=== PATIENT | female | born 1930 | race Caucasian/White ===

== ENCOUNTER 2017-10-26 10:29 | Inpatient (IN) | payer MEDICARE, OTHER ==
[2017-10-26] MEDS ORDERED: predniSONE 20 MG TAB PO STA (11:01)
[2017-10-26] MEDS ORDERED: IPRATROPIUM-ALBUTEROL 3 ML NEB INHALATION STA (11:01)
--- NOTE | 2017-10-26 11:04 | ED ---
General Adult HPI - General Chief complaint: Shortness of Breath Stated complaint: Weakness Time Seen by Provider: 10/26/17 10:42 Source: patient, family, RN notes reviewed Mode of arrival: wheelchair Limitations: physical limitation - History of Present Illness Initial comments: 86-year-old female presenting with 2 weeks of cough and shortness of breath. Patient has past medical history of congestive heart failure, she has a remote history of tobacco use. She does report orthopnea which is unchanged from baseline. Denies fever. Cough is occasionally productive of yellow sputum. Denies nausea vomiting, states she had one or 2 episodes of diarrhea. Complains of small amount of lower extremity swelling which is at baseline, no worse than usual. Denies chest pain. Denies any pain complaints. Does have a mild sore throat which she attributes to coughing. History of irregular heartbeat on anticoagulation. - Related Data Home Medications Medication Instructions Recorded Confirmed Rivaroxaban [Xarelto] 15 mg PO DAILY 02/26/14 10/26/17 Omeprazole 20 mg PO DAILY 10/26/17 10/26/17 Previous Rx's Medication Instructions Recorded Atenolol [Tenormin] 25 mg PO DAILY #30 tab 03/03/14 Furosemide [Lasix] 40 mg PO BID #60 tab 03/03/14 Lisinopril [Zestril] 2.5 mg PO DAILY #30 tab 03/03/14 Allergies Allergy/AdvReac Type Severity Reaction Status Date / Time No Known Allergies Allergy Verified 10/26/17 11:25 Review of Systems ROS Statement: Those systems with pertinent positive or pertinent negative responses have been documented in the HPI. ROS Other: All systems not noted in ROS Statement are negative. Past Medical History Past Medical History: Cancer, COPD, GERD/Reflux, Hyperlipidemia, Hypertension, Osteoarthritis (OA), Pneumonia Additional Past Medical History / Comment(s): trigeminal neuralgia History of Any Multi-Drug Resistant Organisms: None Reported Past Surgical History: Hysterectomy Additional Past Surgical History / Comment(s): Right mastectomy, bilateral cataracts Past Psychological History: No Psychological Hx Reported Smoking Status: Former smoker Past Alcohol Use History: None Reported Past Drug Use History: None Reported General Exam Limitations: physical limitation General appearance: alert, in no apparent distress Head exam: Present: atraumatic, normocephalic Eye exam: Present: normal appearance, PERRL Neck exam: Present: normal inspection. Absent: tenderness, meningismus Respiratory exam: Present: respiratory distress (mild), wheezes, prolonged expiratory. Absent: rales Cardiovascular Exam: Present: tachycardia, irregular rhythm GI/Abdominal exam: Present: soft. Absent: distended, tenderness Extremities exam: Present: normal inspection, normal capillary refill, pedal edema (trace) Back exam: Present: normal inspection, full ROM. Absent: tenderness Neurological exam: Present: alert, oriented X3, CN II-XII intact. Absent: motor sensory deficit Psychiatric exam: Present: normal affect, normal mood Skin exam: Present: warm, dry, intact. Absent: cyanosis, diaphoretic Course Vital Signs 10/26/17 10/26/17 10/26/17 10:36 11:26 11:32 Temperature 99.5 F Pulse Rate 103 H 87 Respiratory 18 22 Rate Blood Pressure 134/69 O2 Sat by Pulse 96 Oximetry 10/26/17 10/26/17 10/26/17 11:37 11:39 12:44 Temperature 97.9 F Pulse Rate 100 100 90 Respiratory 20 20 Rate Blood Pressure 155/85 127/75 O2 Sat by Pulse 99 96 Oximetry 10/26/17 13:31 Temperature 98.3 F Pulse Rate 86 Respiratory 18 Rate Blood Pressure 124/63 O2 Sat by Pulse 96 Oximetry EKG Findings - EKG Comments: EKG Findings:: EKG shows a flutter with variable AV block, rate of 101, QS duration 84, QTC 523, no ST segment elevation Medical Decision Making - Medical Decision Making 86-year-old female presenting with cough and dyspnea. Patient has past medical history of CHF, no known history of COPD although patient does have remote history of tobacco use. On examination patient has wheezing and prolonged expiration in all lung braga, no Rales. Laboratory studies the white blood count 8.4, hemoglobin 12.0, sodium 137, potassium 3.9 and a creatinine of 1.0 this is all normal. Troponin elevated 0.16 [place] [address]. Wheezing may be bronchospastic or secondary to edema. Chest x-ray shows cardiomegaly with no significant pulmonary edema or pneumonia. Patient is given steroids, albuterol , and Lasix with mild improvement in symptoms. She will be admitted for further evaluation treatment of heart failure, and reactive airway disease Diagnosis: Congestive heart failure, troponin elevation, reactive airway - Lab Data Result diagrams: 10/26/17 10:50 10/26/17 10:50 Lab Results 10/26/17 10/26/17 10/26/17 Range/Units 10:50 10:50 10:50 WBC 8.4 (3.8-10.6) k/uL RBC 4.07 (3.80-5.40) m/uL Hgb 12.4 (11.4-16.0) gm/dL Hct 37.5 (34.0-46.0) % MCV 92.2 (80.0-100.0) fL MCH 30.4 (25.0-35.0) pg MCHC 33.0 (31.0-37.0) g/dL RDW 14.1 (11.5-15.5) % Plt Count 130 L (150-450) k/uL Neutrophils % 86 % Lymphocytes % 7 % Monocytes % 5 % Eosinophils % 0 % Basophils % 0 % Neutrophils # 7.3 (1.3-7.7) k/uL Lymphocytes # 0.6 L (1.0-4.8) k/uL Monocytes # 0.4 (0-1.0) k/uL Eosinophils # 0.0 (0-0.7) k/uL Basophils # 0.0 (0-0.2) k/uL PT (9.0-12.0) sec INR (<1.2) APTT (22.0-30.0) sec Sodium 137 (137-145) mmol/L Potassium 3.9 (3.5-5.1) mmol/L Chloride 99 (98-107) mmol/L Carbon Dioxide 26 (22-30) mmol/L Anion Gap 12 mmol/L BUN 21 H (7-17) mg/dL Creatinine 1.00 (0.52-1.04) mg/dL Est GFR (MDRD) Af Amer >60 (>60 ml/min/1.73 sqM) Est GFR (MDRD) Non-Af 52 (>60 ml/min/1.73 sqM) Glucose 131 H (74-99) mg/dL Plasma Lactic Acid Vik (0.7-2.0) mmol/L Calcium 8.9 (8.4-10.2) mg/dL Magnesium 2.0 (1.6-2.3) mg/dL Total Bilirubin 1.0 (0.2-1.3) mg/dL AST 93 H (14-36) U/L ALT 74 H (9-52) U/L Alkaline Phosphatase 71 (38-126) U/L Total Creatine Kinase 256 H (30-135) U/L CK-MB (CK-2) 4.2 H* (0.0-2.4) ng/mL CK-MB (CK-2) Rel Index 1.6 Troponin I 0.161 H* (0.000-0.034) ng/mL NT-Pro-B Natriuret Pep pg/mL Total Protein 6.0 L (6.3-8.2) g/dL Albumin 3.8 (3.5-5.0) g/dL Influenza Type A RNA (Not Detectd) Influenza Type B (PCR) (Not Detectd) 10/26/17 10/26/17 10/26/17 Range/Units 10:50 10:50 10:50 WBC (3.8-10.6) k/uL RBC (3.80-5.40) m/uL Hgb (11.4-16.0) gm/dL Hct (34.0-46.0) % MCV (80.0-100.0) fL MCH (25.0-35.0) pg MCHC (31.0-37.0) g/dL RDW (11.5-15.5) % Plt Count (150-450) k/uL Neutrophils % % Lymphocytes % % Monocytes % % Eosinophils % % Basophils % % Neutrophils # (1.3-7.7) k/uL Lymphocytes # (1.0-4.8) k/uL Monocytes # (0-1.0) k/uL Eosinophils # (0-0.7) k/uL Basophils # (0-0.2) k/uL PT 12.5 H (9.0-12.0) sec INR 1.3 H (<1.2) APTT 35.0 H (22.0-30.0) sec Sodium (137-145) mmol/L Potassium (3.5-5.1) mmol/L Chloride (98-107) mmol/L Carbon Dioxide (22-30) mmol/L Anion Gap mmol/L BUN (7-17) mg/dL Creatinine (0.52-1.04) mg/dL Est GFR (MDRD) Af Amer (>60 ml/min/1.73 sqM) Est GFR (MDRD) Non-Af (>60 ml/min/1.73 sqM) Glucose (74-99) mg/dL Plasma Lactic Acid Vik (0.7-2.0) mmol/L Calcium (8.4-10.2) mg/dL Magnesium (1.6-2.3) mg/dL Total Bilirubin (0.2-1.3) mg/dL AST (14-36) U/L ALT (9-52) U/L Alkaline Phosphatase (38-126) U/L Total Creatine Kinase (30-135) U/L CK-MB (CK-2) (0.0-2.4) ng/mL CK-MB (CK-2) Rel Index Troponin I (0.000-0.034) ng/mL NT-Pro-B Natriuret Pep 15044 pg/mL Total Protein (6.3-8.2) g/dL Albumin (3.5-5.0) g/dL Influenza Type A RNA Not Detected (Not Detectd) Influenza Type B (PCR) Not Detected (Not Detectd) 10/26/17 Range/Units 10:50 WBC (3.8-10.6) k/uL RBC (3.80-5.40) m/uL Hgb (11.4-16.0) gm/dL Hct (34.0-46.0) % MCV (80.0-100.0) fL MCH (25.0-35.0) pg MCHC (31.0-37.0) g/dL RDW (11.5-15.5) % Plt Count (150-450) k/uL Neutrophils % % Lymphocytes % % Monocytes % % Eosinophils % % Basophils % % Neutrophils # (1.3-7.7) k/uL Lymphocytes # (1.0-4.8) k/uL Monocytes # (0-1.0) k/uL Eosinophils # (0-0.7) k/uL Basophils # (0-0.2) k/uL PT (9.0-12.0) sec INR (<1.2) APTT (22.0-30.0) sec Sodium (137-145) mmol/L Potassium (3.5-5.1) mmol/L Chloride (98-107) mmol/L Carbon Dioxide (22-30) mmol/L Anion Gap mmol/L BUN (7-17) mg/dL Creatinine (0.52-1.04) mg/dL Est GFR (MDRD) Af Amer (>60 ml/min/1.73 sqM) Est GFR (MDRD) Non-Af (>60 ml/min/1.73 sqM) Glucose (74-99) mg/dL Plasma Lactic Acid Vik 1.7 (0.7-2.0) mmol/L Calcium (8.4-10.2) mg/dL Magnesium (1.6-2.3) mg/dL Total Bilirubin (0.2-1.3) mg/dL AST (14-36) U/L ALT (9-52) U/L Alkaline Phosphatase (38-126) U/L Total Creatine Kinase (30-135) U/L CK-MB (CK-2) (0.0-2.4) ng/mL CK-MB (CK-2) Rel Index Troponin I (0.000-0.034) ng/mL NT-Pro-B Natriuret Pep pg/mL Total Protein (6.3-8.2) g/dL Albumin (3.5-5.0) g/dL Influenza Type A RNA (Not Detectd) Influenza Type B (PCR) (Not Detectd) Disposition Clinical Impression: Congestive heart failure, Troponin level elevated Disposition: ADMITTED IP TO THIS HOSP Condition: Stable Referrals: Roe Simons III, MD [Primary Care Provider] - 1-2 days Decision to Admit Reason: Admit from EC Decision Date: 10/26/17 Decision Time: 13:03
[2017-10-26 11:17] LABS: Basophils % (A) 0 %; Eosinophils % (A) 0 %; HCT 37.5 % (34.0-46.0); HGB 12.4 gm/dL (11.4-16.0); Lymphocytes # (A) 0.6 k/uL (1.0-4.8); Lymphocytes % (A) 7 %; MCH 30.4 pg (25.0-35.0); MCV 92.2 fL (80.0-100.0); Mean Platelet Volume 7.5; Monocytes # (A) 0.4 k/uL (0-1.0); Monocytes % (A) 5 %; Neutrophils # (A) 7.3 k/uL (1.3-7.7); Neutrophils % (A) 86 %; Platelet Count 130 k/uL (150-450); RBC 4.07 m/uL (3.80-5.40); RDW 14.1 % (11.5-15.5); WBC 8.4 k/uL (3.8-10.6)
[2017-10-26 11:26] LABS: INR 1.3 (<1.2); Prothrombin Time 12.5 sec (9.0-12.0)
[2017-10-26 11:43] LABS: ALT 74 U/L (9-52); AST 93 U/L (14-36); Albumin 3.8 g/dL (3.5-5.0); Alkaline Phosphatase 71 U/L (38-126); Anion Gap 12 mmol/L; Blood Urea Nitrogen 21 mg/dL (7-17); Calcium 8.9 mg/dL (8.4-10.2); Carbon Dioxide 26 mmol/L (22-30); Chloride 99 mmol/L (98-107); Glucose 131 mg/dL (74-99); Potassium 3.9 mmol/L (3.5-5.1); Sodium 137 mmol/L (137-145)
[2017-10-26 12:02] LABS: Creatine Kinase MB 4.2 ng/mL (0.0-2.4); Troponin I 0.161 ng/mL (0.000-0.034)
--- NOTE | 2017-10-26 12:22 | XR ---
EXAMINATION TYPE: XR chest 2V DATE OF EXAM: 10/26/2017 COMPARISON: 03/02/2014 INDICATION: Difficulty breathing TECHNIQUE: Frontal and lateral views of the chest are obtained. FINDINGS: Cardiomediastinal silhouette is again enlarged, stable in comparison to exam of 03/02/2014. There is an exaggerated thoracic kyphosis and generalized demineralization of the osseous structures . No pleural effusion is seen or pneumothorax. No focal consolidation. Left costophrenic angle is obs cured by cardiomegaly and soft tissues. Single surgical clip is noted along the right peripheral uppe r lung. IMPRESSION: Stable cardiomegaly mediastinal silhouette enlargement dating back to 03/02/2014. No acut e cardiopulmonary process.
[2017-10-26] MEDS ORDERED: FUROSEMIDE 10 MG/ML 2 ML VIAL IV STA (12:56)
[2017-10-26] MEDS ORDERED: ASPIRIN 325 MG TAB PO STA (13:04)
[2017-10-26] MEDS ORDERED: NALOXONE 0.4 MG/ML 1 ML VIAL IV PRN (14:02)
[2017-10-26] MEDS ORDERED: ACETAMINOPHEN TAB 325 MG TAB PO PRN (14:02)
[2017-10-26 18:01] LABS: Creatine Kinase MB 5.5 ng/mL (0.0-2.4); Troponin I 0.114 ng/mL (0.000-0.034)
[2017-10-26] MEDS: methylPREDNISolone SOD SUCCI 125 MG/2 ML VIAL IV SCH ×2 (18:36→23:17)
[2017-10-26 18:58] LABS: Appearance,Urine Clear (Clear); Bilirubin,Urine Negative (Negative); Blood,Urine Trace (Negative); Color,Urine Light Yellow; Glucose,Urine (UA) Negative (Negative); Ketones,Urine Trace (Negative); Leukocyte Esterase,Urine Negative (Negative); Mucus,Urine Rare /hpf; Nitrite,Urine Negative (Negative); Protein,Urine Negative (Negative); RBC,Urine 1 /hpf (0-5); Specific Gravity,Urine 1.005 (1.001-1.035); Squamous Epithelial Cell,Urine <1 /hpf (0-4); Urobilinogen,Urine <2.0 mg/dL (<2.0); WBC,Urine 1 /hpf (0-5)
[2017-10-26] MEDS: AZITHROMYCIN 500 MG in SODIUM CHLORIDE 0.9% 250 ML IVPB SCH (19:07)
[2017-10-26] MEDS: cefTRIAXone IN SWFI 1,000 MG/10 ML SYRINGE IVP SCH (19:07)
[2017-10-26 20:59] LABS: Glucose,Whole Blood 163 mg/dL (75-99)
[2017-10-26] MEDS ORDERED: FUROSEMIDE 10 MG/ML 2 ML VIAL IV SCH (21:00)
[2017-10-26] MEDS: INSULIN ASPART 100 UNIT/ML 1 ML 10 ML VIAL SQ SCH (21:00)
[2017-10-26] MEDS: FUROSEMIDE 10 MG/ML 4 ML VIAL IV SCH (21:01)
--- NOTE | 2017-10-26 21:09 | HP ---
HISTORY AND PHYSICAL CHIEF COMPLAINTS: Shortness of breath and cough and sputum. HISTORY OF PRESENT ILLNESS: This 86-year-old woman with a past medical history of multiple medical problems, including atrial fibrillation, history of CHF, COPD, GERD, hypertension, hyperlipidemia, history of memory impairment, history of trigeminal neuralgia, being followed by Dr. Simons in the outpatient setting, was having cough and upper respiratory symptoms over the last 2 weeks. The patient had increasing shortness of breath and tiredness and weakness and patient came to [facility] and was admitted for further evaluation and treatment. Patient has orthopnea, too. Patient has some productive yellow sputum. The patient came to the emergency room and a chest x- ray showed some vascular congestion as well as some mediastinal silhouette enlargement. Otherwise there is no history of any fever, rigor or chills; no history of headache, loss of consciousness, seizures. PAST MEDICAL HISTORY: 1. History of atrial fibrillation. 2. History of CHF. 3. COPD. 4. GERD. 5. Hypertension. 6. Hyperlipidemia. 7. History of memory impairment. 8. History of DJD. 9. History of trigeminal neuralgia. HOME MEDICATIONS: 1. Xarelto 15 mg p.o. daily. 2. Omeprazole 20 mg daily. 3. Zestril 2.5 mg daily. 4. Lasix 40 mg b.i.d. 5. Tenormin 25 mg daily. ALLERGIES: NONE. FAMILY HISTORY: No history of heart disease or strokes in the family. SOCIAL HISTORY: Previous history of smoking. No history of alcohol intake. REVIEW OF SYSTEMS: ENT: Diminished hearing. Diminished vision. CARDIOVASCULAR SYSTEM: As mentioned earlier. RESPIRATORY SYSTEM: As mentioned earlier. GI: No nausea, vomiting. : No dysuria or retention. NERVOUS SYSTEM: No numbness, weakness. ALLERGY/IMMUNOLOGY: No asthma, hayfever. MUSCULOSKELETAL: As mentioned earlier. HEMATOLOGY/ONCOLOGY: No history of anemia; otherwise as mentioned earlier. ENDOCRINE: No history of diabetes, hypothyroidism. CONSTITUTIONAL: As mentioned earlier. DERMATOLOGY: Negative. RHEUMATOLOGY: Negative. PSYCHIATRY: As mentioned earlier. PHYSICAL EXAMINATION: Patient is alert and oriented x3. Pulse 91, blood pressure 137/89, respiration 16, temperature is 98.2, pulse ox 94% on room air. HEENT: Conjunctivae normal. Oral mucosa moist. NECK: No jugular venous distention. No carotid bruit. No lymph node enlargement. CARDIOVASCULAR SYSTEM: S1, S2 muffled. No S3. No S4. RESPIRATORY SYSTEM: Breath sounds diminished at the bases. Scattered rhonchi and crackles. Expiratory wheezing and prolongation also present. ABDOMEN: Soft, nontender. No mass palpable. LEGS: No edema. No swelling. NERVOUS SYSTEM: Higher functions as mentioned earlier. Moves all 4 limbs. No focal motor or sensory deficit. LYMPHATICS: No lymph node palpable in neck, axillae or groin. SKIN: No ulcer, rash, bleeding. LABS: WBC 8.4, hemoglobin 12.4, platelets 130. INR 1.3. PTT is 12.5. Glucose 131. AST is 193 and ALT is 94. CK-MB is 4.2, troponin 0.161. Total protein is 6 NT proBNP is 36,500. ASSESSMENT: 1. Shortness of breath, possibly multifactorial, with congestive heart failure, acute exacerbation, ejection fraction unknown. 2. Possible chronic obstructive pulmonary disease, acute exacerbation, with acute purulent tracheobronchitis. 3. History of recent upper respiratory infection. 4. Increased AST, ALT, possibly mild hepatitis. 5. Troponin 1 0.161; rule out acute [id number]-elevation myocardial infarction. 6. Mild thrombocytopenia. 7. History of nicotine dependence. 8. History of atrial fibrillation, chronic, persistent. 9. History of gastroesophageal reflux disease. 10.Hypertension. 11.Hyperlipidemia. 12.History of dementia. 13.History of degenerative joint disease. 14.History of pneumonia. 15.History of trigeminal neuralgia. 16.History of breast cancer. 17.History of peripheral vascular. 18.Migraines. 19.History hysterectomy. 20.History of depression. 21.FULL CODE. RECOMMENDATIONS AND DISCUSSION: In this 86-year-old woman who presented with multiple complex medical issues, we will monitor the patient closely, continue the current medications, continue symptomatic treatment. The patient has multifactorial etiology for her symptoms. At this time I would recommend repeating the flu swab with the proper technique. I would also recommend IV antibiotics empirically and intensive bronchodilator treatment. Lasix and monitoring fluid/electrolyte balance also will be recommended. Repeat labs will be ordered. IV steroids. Monitor blood sugars closely. Resume the home medications. Prognosis is guarded because of multiple complex medical issues. Further recommendations to follow. Discussed with the patient. A copy of this dictation is being forwarded to Dr. Simons, who is the primary physician. Discussed with the patient, who understands and agrees. MMODL / IJN: [id number] / REHAN
[2017-10-26] MEDS: ALPRAZolam 0.25 MG TAB PO PRN (23:17)
[2017-10-26 23:44] LABS: Creatine Kinase MB 6.3 ng/mL (0.0-2.4)
[2017-10-26 23:45] LABS: Troponin I 0.084 ng/mL (0.000-0.034)
[2017-10-27] MEDS: SYMBICORT 160-4.5 MCG INHALER INHALATION SCH ×3 (00:14→20:18)
[2017-10-27 05:57] LABS: Glucose,Whole Blood 150 mg/dL (75-99)
[2017-10-27 06:11] LABS: Basophils % (A) 0 %; Eosinophils % (A) 0 %; HGB 13.1 gm/dL (11.4-16.0); Hypochromasia Slight; Lymphocytes # (A) 0.4 k/uL (1.0-4.8); Lymphocytes % (A) 8 %; MCH 30.4 pg (25.0-35.0); MCHC 31.9 g/dL (31.0-37.0); MCV 95.3 fL (80.0-100.0); Mean Platelet Volume 8.1; Monocytes # (A) 0.1 k/uL (0-1.0); Monocytes % (A) 2 %; Neutrophils # (A) 4.4 k/uL (1.3-7.7); Neutrophils % (A) 88 %; Platelet Count 117 k/uL (150-450); RDW 15.1 % (11.5-15.5)
[2017-10-27 06:29] LABS: Anion Gap 11 mmol/L; Blood Urea Nitrogen 24 mg/dL (7-17); Calcium 8.4 mg/dL (8.4-10.2); Carbon Dioxide 25 mmol/L (22-30); Chloride 103 mmol/L (98-107); Glucose 165 mg/dL (74-99); Potassium 3.5 mmol/L (3.5-5.1); Sodium 139 mmol/L (137-145)
[2017-10-27] MEDS: INSULIN ASPART 100 UNIT/ML 1 ML 10 ML VIAL SQ SCH ×4 (06:32→21:45)
[2017-10-27] MEDS: methylPREDNISolone SOD SUCCI 125 MG/2 ML VIAL IV SCH ×4 (06:32→23:05)
[2017-10-27] MEDS: PANTOPRAZOLE 40 MG TABLET PO SCH (06:33)
[2017-10-27] MEDS: ALBUTEROL NEBULIZED 2.5 MG/3 ML INHALATION PRN ×4 (07:56→20:18)
[2017-10-27] MEDS ORDERED: predniSONE 20 MG TAB PO SCH (09:00)
[2017-10-27] MEDS: AZITHROMYCIN 500 MG in SODIUM CHLORIDE 0.9% 250 ML IVPB SCH (09:18)
[2017-10-27] MEDS: cefTRIAXone IN SWFI 1,000 MG/10 ML SYRINGE IVP SCH (09:20)
[2017-10-27] MEDS: RIVAROXABAN 15 MG TAB PO SCH (09:22)
[2017-10-27] MEDS: LISINOPRIL 2.5 MG TAB PO SCH (09:22)
[2017-10-27] MEDS: FUROSEMIDE 10 MG/ML 4 ML VIAL IV SCH ×2 (09:22→20:27)
[2017-10-27] MEDS: ATENOLOL 25 MG TAB PO SCH (09:22)
--- NOTE | 2017-10-27 11:38 | P.CRDCN ---
History of Present Illness Consult date: 10/27/17 Requesting physician: Dharmesh Hickey Consult reason: shortness of breath Chief complaint: Shortness of of breath and fatigue History of present illness: This is an 86-year-old female with history of persistent atrial fibrillation, COPD, hypertension, lipidemia, memory impairment, who presents to the hospital with symptoms of progressively worsening shortness of breath with associated productive cough of yellow sputum. She denies any fever. Asked x- ray on admission revealed stable cardiomegaly, mediastinal silhouette enlargement dating back to 2013 with no acute process. EKG on admission showed atrial fibrillation with a controlled ventricular response. Blood pressure on admission 134/68 with a heart rate in the 90s, temperature 99.5 blood pressure this morning 125/60, heart rate in the 60s, 94% on 2 L of oxygen. Laboratory data was reviewed, white blood cell count 5.0, platelet count 117, hemoglobin 13. Sodium 139, potassium 3.5, BUN 24, creatinine 0.8. AST 93, ALT 74. Troponin 0.16, 0.11, 0.08. BNP level 36,500. Patient was initiated on IV Lasix as well as antibiotics and steroids on admission. Her weight is down 1 kg today. She continues to have productive cough, quite wheezy. Past Medical History Past Medical History: Atrial Fibrillation, Cancer, Heart Failure, COPD, GERD/ Reflux, Hyperlipidemia, Hypertension, Memory Impairment, Osteoarthritis (OA), Pneumonia Additional Past Medical History / Comment(s): trigeminal neuralgia, bronchitis, hx of rt breast cancer(sx only), pvd,migraines, upper/lower bridges, osteoporosis, djd History of Any Multi-Drug Resistant Organisms: None Reported Past Surgical History: Hysterectomy Additional Past Surgical History / Comment(s): Right mastectomy, bilateral cataracts, lt carpal tunnel, ganglion cyst removed Past Anesthesia/Blood Transfusion Reactions: No Reported Reaction Smoking Status: Former smoker - Past Family History Father History Unknown: Yes Mother History Unknown: Yes Medications and Allergies Home Medications Medication Instructions Recorded Confirmed Type Rivaroxaban [Xarelto] 15 mg PO DAILY 02/26/14 10/26/17 History Atenolol [Tenormin] 25 mg PO DAILY #30 tab 03/03/14 10/26/17 Rx Furosemide [Lasix] 40 mg PO BID #60 tab 03/03/14 10/26/17 Rx Lisinopril [Zestril] 2.5 mg PO DAILY #30 tab 03/03/14 10/26/17 Rx Omeprazole 20 mg PO DAILY 10/26/17 10/26/17 History Allergies Allergy/AdvReac Type Severity Reaction Status Date / Time No Known Allergies Allergy Verified 10/26/17 11:25 Physical Exam Vitals: Vital Signs Temp Pulse Pulse Resp BP BP Pulse Ox 10/27/17 11:18 88 10/27/17 08:11 84 10/27/17 08:00 98.1 F 63 18 125/66 94 L 10/27/17 07:56 76 10/27/17 03:38 97.1 F L 85 18 121/70 93 L 10/27/17 00:00 96.9 F L 115 H 18 138/87 96 10/26/17 20:00 97.5 F L 94 18 115/62 96 10/26/17 15:54 18 10/26/17 15:40 91 16 137/89 95 10/26/17 14:32 98.2 F 71 18 161/70 96 10/26/17 13:31 98.3 F 86 18 124/63 96 10/26/17 12:44 90 20 127/75 96 10/26/17 11:39 97.9 F 100 20 155/85 99 10/26/17 11:37 100 10/26/17 11:32 22 Intake and Output 10/26/17 10/27/17 10/27/17 22:59 06:59 14:59 Intake Total 240 120 Output Total 200 Balance 40 120 Intake: Oral 240 120 Output: Urine 200 Other: # Voids 1 2 # Bowel Movements 0 Weight 54.1 kg 53.4 kg PHYSICAL EXAMINATION: HEENT: Head is atraumatic, normocephalic. Pupils equal, round. Neck is supple. There is elevated jugular venous pressure. HEART EXAMINATION: Heart S1 and S2 irregularly irregular CHEST EXAMINATION: Reveal scattered coarse rhonchi and wheezing throughout ABDOMEN: Soft, nontender. Bowel sounds are heard. No organomegaly noted. EXTREMITIES: 1+ peripheral pulses with no evidence of peripheral edema and no calf tenderness noted. NEUROLOGIC patient is awake, alert and oriented -3. . Results 10/27/17 05:52 10/27/17 05:52 Cardiac Enzymes 10/26/17 10/26/17 10/26/17 Range/Units 10:50 10:50 17:09 AST 93 H (14-36) U/L CK-MB (CK-2) 4.2 H* 5.5 H* (0.0-2.4) ng/mL Troponin I 0.161 H* 0.114 H* (0.000-0.034) ng/mL 10/26/17 Range/Units 22:23 AST (14-36) U/L CK-MB (CK-2) 6.3 H* (0.0-2.4) ng/mL Troponin I 0.084 H* (0.000-0.034) ng/mL Coagulation 10/26/17 Range/Units 10:50 PT 12.5 H (9.0-12.0) sec APTT 35.0 H (22.0-30.0) sec CBC 10/27/17 Range/Units 05:52 WBC 5.0 (3.8-10.6) k/uL RBC 4.30 (3.80-5.40) m/uL Hgb 13.1 (11.4-16.0) gm/dL Hct 41.0 (34.0-46.0) % Plt Count 117 L (150-450) k/uL Comprehensive Metabolic Panel 10/26/17 10/27/17 Range/Units 10:50 05:52 Sodium 137 139 (137-145) mmol/L Potassium 3.9 3.5 (3.5-5.1) mmol/L Chloride 99 103 (98-107) mmol/L Carbon Dioxide 26 25 (22-30) mmol/L BUN 21 H 24 H (7-17) mg/dL Creatinine 1.00 0.83 (0.52-1.04) mg/dL Glucose 131 H 165 H (74-99) mg/dL Calcium 8.9 8.4 (8.4-10.2) mg/dL AST 93 H (14-36) U/L ALT 74 H (9-52) U/L Alkaline Phosphatase 71 (38-126) U/L Total Protein 6.0 L (6.3-8.2) g/dL Albumin 3.8 (3.5-5.0) g/dL Current Medications Generic Name Dose Route Start Last Admin Trade Name Freq PRN Reason Stop Dose Admin Acetaminophen 650 mg 10/26/17 14:02 Tylenol Tab PO Q6HR PRN Mild Pain or Fever > 100.5 Albuterol Sulfate 2.5 mg 10/26/17 13:04 10/27/17 11:17 Ventolin Nebulized INHALATION 2.5 mg RT-QID PRN Administration Shortness Of Breath Or Wheezing Alprazolam 0.25 mg 10/26/17 17:56 10/26/17 23:17 Xanax PO 0.25 mg TID PRN Administration Anxiety Atenolol 25 mg 10/27/17 09:00 10/27/17 09:22 Tenormin PO 25 mg DAILY ANJANA Administration Budesonide/Formoterol Fumarate 2 puff 10/26/17 20:00 10/27/17 07:56 Symbicort 160-4.5 Mcg Inhaler INHALATION 2 puff RT-BID ANJANA Administration Ceftriaxone Sodium 1,000 mg 10/26/17 18:30 10/27/17 09:20 Rocephin IVP 1,000 mg Q24HR ANJANA Administration Furosemide 40 mg 10/26/17 21:00 10/27/17 09:22 Lasix IV 40 mg Q12HR ANJANA Administration Azithromycin 500 mg/ Sodium 250 mls @ 125 mls/hr 10/26/17 18:30 10/27/17 09: 18 Chloride IVPB 125 mls/hr DAILY ANJANA Administration Insulin Aspart 0 unit 10/26/17 21:00 10/27/17 06:32 Novolog SQ 1 unit ACHS ANJANA Administration Protocol Lisinopril 2.5 mg 10/27/17 09:00 10/27/17 09:22 Zestril PO 2.5 mg DAILY ANJANA Administration Methylprednisolone Sodium Succinate 60 mg 10/26/17 18:00 10/27/17 06:32 Solu-Medrol IV 60 mg Q6HR ANJANA Administration Naloxone HCl 0.2 mg 10/26/17 14:02 Narcan IV Q2M PRN Opioid Reversal Pantoprazole Sodium 40 mg 10/27/17 07:30 10/27/17 06:33 Protonix PO 40 mg [id number] ANJANA Administration Rivaroxaban 15 mg 10/27/17 09:00 10/27/17 09:22 Xarelto PO 15 mg DAILY ANJANA Administration Intake and Output 10/26/17 10/27/17 10/27/17 22:59 06:59 14:59 Intake Total 240 120 Output Total 200 Balance 40 120 Intake: Oral 240 120 Output: Urine 200 Other: # Voids 1 2 # Bowel Movements 0 Weight 54.1 kg 53.4 kg 10/27/17 05:52 10/27/17 05:52 EKG Interpretations (text) EKG shows atrial fibrillation with a controlled ventricular response Assessment and Plan Plan: Assessment and plan #1 congestive cardiac failure, LV function unknown. Echocardiogram with Doppler study pending. #2 COPD exacerbation with acute purulent tracheobronchitis #3 abnormal troponin, likely secondary to oxygen supply and demand mismatch. Patient denies any chest discomfort. EKG shows atrial fibrillation with a controlled ventricular response #4 chronic persistent atrial fibrillation, on Xarelto for anticoagulation #5 nicotine dependence #6 COPD #7 hypertension #8 hyperlipidemia #9 history of dementia #10 abnormal liver enzymes, likely secondary to congestion from congestive cardiac failure Plan We will review the echocardiogram with Doppler study. Continue IV Lasix along with beta benedicto and TAISHA inhibitor. On her intake and output along with daily weights, daily lytes BUN and creatinine.
[2017-10-27 11:50] VITALS: BMI 23.0
[2017-10-27 11:58] LABS: Glucose,Whole Blood 178 mg/dL (75-99)
--- NOTE | 2017-10-27 12:24 | ECHOF ---
Referral Reason:chf MEASUREMENTS -------- HEIGHT: 152.4 cm WEIGHT: 53.1 kg BP: 121/70 RVIDd: 3.2 cm (< 3.3) IVSd: 1.4 cm (0.6 - 1.1) LVIDd: 4.3 cm (3.9 - 5.3) LVPWd: 1.5 cm (0.6 - 1.1) IVSs: 1.8 cm LVIDs: 3.6 cm LVPWs: 2.2 cm LA Diam: 5.5 cm (2.7 - 3.8) LAESV Index (A-L): 98.62 ml/m Ao Diam: 3.6 cm (2.0 - 3.7) AV Cusp: 2.0 cm (1.5 - 2.6) MV EXCURSION: 26.377 mm (> 18.000) MV EF SLOPE: 221 mm/s (70 - 150) EPSS: 0.3 cm RAP: 5.00 mmHg RVSP: 45.00 mmHg FINDINGS -------- Atrial fibrillation. This was a technically good study. The left ventricular size is normal. There is moderate concentric left ventricular hypertrophy. O verall left ventricular systolic function is mild-moderately impaired with, an EF between 40 - 45 %. The right ventricle is normal in size. LA is severely dilated >40 ml/m2 The right atrium is normal in size. The aortic valve is trileaflet and appears structurally normal. The mitral valve leaflets are mildly thickened. Mild mitral annular calcification present. Mild m itral regurgitation is present , predominately a posteriorly directed jet. Mild tricuspid regurgitation present. There is mild pulmonary hypertension. The right ventricular systolic pressure, as measured by Doppler, is 45.00mmHg. Moderate pulmonic regurgitation. The aortic root size is normal. Normal inferior vena cava with normal inspiratory collapse consistent with estimated right atrial pre ssure of 5 mmHg. There is no pericardial effusion. CONCLUSIONS -------- 1. Atrial fibrillation. 2. This was a technically good study. 3. The left ventricular size is normal. 4. There is moderate concentric left ventricular hypertrophy. 5. Overall left ventricular systolic function is mild-moderately impaired with, an EF between 40 - 45 %. 6. The right ventricle is normal in size. 7. LA is severely dilated >40 ml/m2 8. The right atrium is normal in size. 9. The aortic valve is trileaflet and appears structurally normal. 10. The mitral valve leaflets are mildly thickened. 11. Mild mitral annular calcification present. 12. Mild mitral regurgitation is present. 13. , predominately a posteriorly directed jet. 14. Mild tricuspid regurgitation present. 15. There is mild pulmonary hypertension. 16. The right ventricular systolic pressure, as measured by Doppler, is 45.00mmHg. 17. Moderate pulmonic regurgitation. 18. The aortic root size is normal. 19. Normal inferior vena cava with normal inspiratory collapse consistent with estimated right atrial pressure of 5 mmHg. 20. There is no pericardial effusion. TUNNEL MUCKER: Isi James RDCS
--- NOTE | 2017-10-27 15:57 | P.CNPUL ---
History of Present Illness Consult date: 10/27/17 Reason for consult: dyspnea History of present illness: This is a very pleasant 86-year-old here patient who comes into the hospital because of increased chest congestion and cough and wheezing typically of an acute tracheobronchitis. Chest x-ray shows no evidence of any pneumonia. Yet she has severe thoracic kyphosis. She is known also to have history of chronic atrial fibrillation and she may have an underlying component of CHF knowing that the BNP level at the time of admission was quite elevated at 36,000. The patient was started on a combination of bronchodilators and steroids and antibiotics and the patient is also on IV Lasix. Her weight is down by around 1 kg since yesterday. She is feeling slightly better compared to yesterday. No pleurisy. No hemoptysis. No chest pain. No altered mental status. No history of smoking patient does not utilize any form of maintenance inhalers. She has a nebulizer at home should she uses on an as-needed basis. No significant swelling in lower extremities. No fall. No altered mentation. The white cell count is not elevated at 5.0. Rest of the blood work and electrodes have been within normal limits. Troponin I been 0.16, 0.11 and 0.08 respectively 3. The echocardiogram was completed and showed atrial fibrillation, moderate concentric left ventricular hypertrophy, mild-to- moderate LV dysfunction with an ejection fraction of 40-45%, normal RV size and function, severely dilated LA, mild MR, right sided pressures of 45 mmHg and moderate degree of pulmonary regurgitation. There is normal respiratory collapse of the right atrium. No pericardial effusion. Review of Systems Constitutional: Reports fatigue, Reports weakness, Reports weight gain Eyes: denies blurred vision, denies bulging eye, denies decreased vision Ears: deny: decreased hearing, ear discharge, earache Ears, nose, mouth and throat: Denies headache, Denies sore throat Cardiovascular: Reports decreased exercise tolerance, Reports dyspnea on exertion, Reports shortness of breath Respiratory: Reports cough, Reports wheezing Genitourinary: Denies dysuria, Denies hematuria Musculoskeletal: Reports as per HPI (, severe thoracic kyphosis), Denies myalgias Musculoskeletal: bilateral: ankle swelling, absent: ankle pain, ankle stiffness Integumentary: Denies pruritus, Denies rash Neurological: Denies numbness, Denies weakness Psychiatric: Denies anxiety, Denies depression Endocrine: Denies fatigue, Denies weight change Past Medical History Past Medical History: Atrial Fibrillation, Cancer, Heart Failure, COPD, GERD/ Reflux, Hyperlipidemia, Hypertension, Memory Impairment, Osteoarthritis (OA), Pneumonia Additional Past Medical History / Comment(s): Chronic atrial fibrillation, breast cancer with a previous right mastectomy, peripheral vascular disease, migraines, trigeminal neuralgia, osteoporosis, osteoarthritis, hypertension, hyperlipidemia, acid reflux, CHF with mild impairment of the LV function with an ejection fraction of 40-45% and moderate degree of pulmonary hypertension History of Any Multi-Drug Resistant Organisms: None Reported Past Surgical History: Hysterectomy Additional Past Surgical History / Comment(s): Right mastectomy, bilateral cataracts, lt carpal tunnel, ganglion cyst removed Past Anesthesia/Blood Transfusion Reactions: No Reported Reaction Smoking Status: Former smoker - Past Family History Father History Unknown: Yes Mother History Unknown: Yes Medications and Allergies Home Medications Medication Instructions Recorded Confirmed Type Rivaroxaban [Xarelto] 15 mg PO DAILY 02/26/14 10/26/17 History Atenolol [Tenormin] 25 mg PO DAILY #30 tab 03/03/14 10/26/17 Rx Furosemide [Lasix] 40 mg PO BID #60 tab 03/03/14 10/26/17 Rx Lisinopril [Zestril] 2.5 mg PO DAILY #30 tab 03/03/14 10/26/17 Rx Omeprazole 20 mg PO DAILY 10/26/17 10/26/17 History Allergies Allergy/AdvReac Type Severity Reaction Status Date / Time No Known Allergies Allergy Verified 10/26/17 11:25 Physical Exam Vitals: Vital Signs Temp Pulse Pulse Resp BP Pulse Ox 10/27/17 12:00 97.8 F 98 20 136/73 96 10/27/17 11:29 92 10/27/17 11:18 88 10/27/17 08:11 84 10/27/17 08:00 98.1 F 63 18 125/66 94 L 10/27/17 07:56 76 10/27/17 03:38 97.1 F L 85 18 121/70 93 L 10/27/17 00:00 96.9 F L 115 H 18 138/87 96 10/26/17 20:00 97.5 F L 94 18 115/62 96 10/26/17 15:54 18 Intake and Output 10/27/17 10/27/17 10/27/17 06:59 14:59 22:59 Intake Total 495 Balance 495 Intake: Intake, IV Titration 250 Amount Azithromycin 500 mg In 250 Sodium Chloride 0.9% 250 ml @ 125 mls/hr IVPB DAILY [facility] Rx#:[id number] Oral 245 Other: # Voids 2 Weight 53.4 kg 53.4 kg Patient Weight 10/28/17 06:59 Weight 53.4 kg The patient appeared elderly female patient who looks quite cachectic at this point. Vital signs as documented. Head exam is unremarkable. No scleral icterus or corneal arcus noted. Neck is without jugular venous distension, thyromegaly, or carotid bruits. Carotid upstrokes are brisk bilaterally. Lungs are diminished breath sounds along with prolongation of the expiratory phase of breathing and there is evidence of thoracic kyphosis. Cardiac exam reveals the PMI to be normally sized and situated. Rhythm is irregular secondary to atrial fibrillation. First and second heart sounds normal. No murmurs, rubs or gallops. Abdominal exam reveals normal bowel sounds, no masses, no organomegaly and no aortic enlargement. Extremities are nonedematous and both femoral and pedal pulses are normal.Examination of the skin revealed no evidence of significant rashes, suspicious appearing nevi or other concerning lesions. Neurologic the patient is awake and alert and there is no focal neurological deficit at this point . psychiatrically the patient has normal affect and mood. Results - Laboratory Findings CBC and BMP: 10/27/17 05:52 10/27/17 05:52 PT/INR, D-dimer PT 12.5 sec (9.0-12.0) H 10/26/17 10:50 INR 1.3 (<1.2) H 10/26/17 10:50 Abnormal lab findings: Abnormal Labs 10/26/17 10/26/17 10/26/17 10:50 10:50 10:50 Plt Count 130 L Lymphocytes # 0.6 L PT INR APTT BUN 21 H Glucose 131 H POC Glucose (mg/dL) AST 93 H ALT 74 H Total Creatine Kinase 256 H CK-MB (CK-2) 4.2 H* Troponin I 0.161 H* Total Protein 6.0 L Urine Ketones Urine Blood Urine Mucus 10/26/17 10/26/17 10/26/17 10:50 17:09 18:30 Plt Count Lymphocytes # PT 12.5 H INR 1.3 H APTT 35.0 H BUN Glucose POC Glucose (mg/dL) AST ALT Total Creatine Kinase 296 H CK-MB (CK-2) 5.5 H* Troponin I 0.114 H* Total Protein Urine Ketones Trace H Urine Blood Trace H Urine Mucus Rare H 10/26/17 10/26/17 10/27/17 20:57 22:23 05:52 Plt Count Lymphocytes # PT INR APTT BUN 24 H Glucose 165 H POC Glucose (mg/dL) 163 H AST ALT Total Creatine Kinase 289 H CK-MB (CK-2) 6.3 H* Troponin I 0.084 H* Total Protein Urine Ketones Urine Blood Urine Mucus 10/27/17 10/27/17 10/27/17 05:52 05:56 11:52 Plt Count 117 L Lymphocytes # 0.4 L PT INR APTT BUN Glucose POC Glucose (mg/dL) 150 H 178 H AST ALT Total Creatine Kinase CK-MB (CK-2) Troponin I Total Protein Urine Ketones Urine Blood Urine Mucus - Diagnostic Findings Chest x-ray: image reviewed Assessment and Plan Plan: Assessment 1 acute COPD exacerbation/acute tracheobronchitis 2 CHF with mild impairment of the LV function with an ejection fraction of 40-45 % and moderate degree of pulmonary hypertension 3 worsening shortness of breath essentially secondary to COPD exacerbation and there may be a mild component of CHF in addition 4 troponin leak, awaiting cardiology evaluation 5 chronic atrial fibrillation rate controlled on anticoagulation with Xarelto 6 thoracic kyphosis 7 hypertension 8 hyperlipidemia 9 thrombocytopenia 10 osteoporosis Plan In regards to COPD exacerbation the patient is on a combination of albuterol neb last treatments 4 times a day [id number], IV 7 Medrol 60 every 6 hours , accommodation Rocephin and Zithromax. She has been started also on Symbicort that can be continued also on outpatient basis as a maintenance for COPD. Treatment of atrial fibrillation per cardiology. Rate is controlled and the patient is on anticoagulants. Will proceed with 24 hours of diuresis to optimize her volume balance. The patient on 40 mg IV Lasix every 12 hours. Clinically improving. We'll continue to follow and make further recommendations based on her progress. Awaiting cardiology evaluation regarding the troponin leak. No acute EKG changes for now. There is some nonspecific ST segment changes in the anterolateral leads. The patient is feeling any chest pain. We'll continue to follow.
[2017-10-27 17:20] LABS: Glucose,Whole Blood 225 mg/dL (75-99)
--- NOTE | 2017-10-27 17:31 | P.PN ---
Subjective Progress Note Date: 10/27/17 Progress Note being dictated for Dr. Hickey. Interval history: This 86-year-old female admitted with shortness of breath, multifactorial with acute CHF exacerbation, COPD acute exacerbation, tracheobronchitis, elevated troponins and multiple other medical issues. Maintained on nebulized bronchodilators [id number], IV steroids, Zithromax , Rocephin. Diuresing well on Lasix IV push, weight currently unchanged. Telemetry reports Atrial fibrillation, controlled ventricular rate. Denies chest pain, palpitations or increasing shortness of breath. Objective - Vital Signs Vital signs: Vital Signs Temp 98.5 F 10/27/17 16:00 Pulse 98 10/27/17 16:18 Resp 20 10/27/17 16:00 BP 133/80 10/27/17 16:00 Pulse Ox 98 10/27/17 16:02 Intake & Output 10/26/17 10/27/17 10/27/17 18:59 06:59 18:59 Intake Total 240 495 Output Total 200 Balance 40 495 Weight 54.1 kg 53.4 kg 53.4 kg Intake: Intake, IV Titration 250 Amount Azithromycin 500 mg In 250 Sodium Chloride 0.9% 250 ml @ 125 mls/hr IVPB DAILY [facility] Rx#:[id number] Oral 240 245 Output: Urine 200 Other: # Voids 1 2 # Bowel Movements 0 - Exam PHYSICAL EXAM: VITAL SIGNS: As above GENERAL: Sitting up in bed, no acute distress HEENT: Conjunctivae normal. eyes normal. NECK: No JVD. No thyroid enlargement. No LNs CARDIOVASCULAR: S1, S2 muffled. Irregular No murmur RESPIRATION: Thoracic kyphosis. Breath sounds diminished in the bases. Scattered rhonchi and crackles. Scattered expiratory wheezing ABDOMEN: Soft, nontender . No guarding. no masses palpable.Bowel sounds heard. LEGS: No edema. no swelling PSYCHIATRY: Alert and oriented -3, mood and affect normal. NERVOUS SYSTEM: Cranial N 2-12 grossly normal. Moves all 4 limbs. Diffuse weakness No focal deficits. No sensory deficit. Skin: no ulcer no rash Joints: No active swelling. No inflammation. Lymphatic system. No LN neck axilla or groin. - Labs CBC & Chem 7: 10/27/17 05:52 10/27/17 05:52 Labs: Abnormal Lab Results - Last 24 Hours (Table) 10/26/17 10/26/17 10/26/17 Range/Units 17:09 18:30 20:57 Plt Count (150-450) k/uL Lymphocytes # (1.0-4.8) k/uL BUN (7-17) mg/dL Glucose (74-99) mg/dL POC Glucose (mg/dL) 163 H (75-99) mg/dL Total Creatine Kinase 296 H (30-135) U/L CK-MB (CK-2) 5.5 H* (0.0-2.4) ng/mL Troponin I 0.114 H* (0.000-0.034) ng/mL Urine Ketones Trace H (Negative) Urine Blood Trace H (Negative) Urine Mucus Rare H (None) /hpf 10/26/17 10/27/17 10/27/17 Range/Units 22:23 05:52 05:52 Plt Count 117 L (150-450) k/uL Lymphocytes # 0.4 L (1.0-4.8) k/uL BUN 24 H (7-17) mg/dL Glucose 165 H (74-99) mg/dL POC Glucose (mg/dL) (75-99) mg/dL Total Creatine Kinase 289 H (30-135) U/L CK-MB (CK-2) 6.3 H* (0.0-2.4) ng/mL Troponin I 0.084 H* (0.000-0.034) ng/mL Urine Ketones (Negative) Urine Blood (Negative) Urine Mucus (None) /hpf 10/27/17 10/27/17 Range/Units 05:56 11:52 Plt Count (150-450) k/uL Lymphocytes # (1.0-4.8) k/uL BUN (7-17) mg/dL Glucose (74-99) mg/dL POC Glucose (mg/dL) 150 H 178 H (75-99) mg/dL Total Creatine Kinase (30-135) U/L CK-MB (CK-2) (0.0-2.4) ng/mL Troponin I (0.000-0.034) ng/mL Urine Ketones (Negative) Urine Blood (Negative) Urine Mucus (None) /hpf Microbiology - Last 24 Hours (Table) 10/26/17 10:50 Blood Culture - Preliminary Blood No Growth after 24 hours Assessment and Plan Assessment: 1. Shortness of breath, multifactorial related to acute COPD exacerbation with acute tracheobronchitis and acute CHF, in a patient with recent upper respiratory infection 2. Acute CHF, EF 40-45%, systolic dysfunction 3. Pulmonary hypertension 4. Elevated LFT, possibly mild hepatitis 5. Troponin 0.161 rule out acute non-STEMI 6. History of nicotine dependence 7. Chronic persistent atrial fibrillation 8. Gastroesophageal reflux disease 9. Hypertension 10. Hyperlipidemia Plan: Continue on current medication regime ,monitoring and symptomatic treatment. Maintain nebulized bronchodilators, steroids, antibiotics. Continue on Lasix, beta benedicto. Anticoagulated on Xarelto. GI prophylaxis in place with Protonix. Close Monitoring of renal function and electrolytes with repeat labs ordered for a.m. Follow closely with both pulmonary and cardiology. The impression and plan of care has been dictated as directed. : I performed a history and examination of this patient, discussed the same with the dictator. I agree with the dictator's note ,documented as a scribe. Any additional findings or plans will be noted.
[2017-10-27 17:40] LABS: Hemoglobin A1C 5.5 % (4.0-6.0)
[2017-10-27 21:33] LABS: Glucose,Whole Blood 224 mg/dL (75-99)
[2017-10-27] MEDS: ALPRAZolam 0.25 MG TAB PO PRN (23:04)
--- NOTE | 2017-10-27 23:11 | CT ---
EXAMINATION TYPE: CT brain wo con DATE OF EXAM: 10/27/2017 COMPARISON: NONE HISTORY: Dizziness with fall, posterior head injury. CT DLP: 1037.10 mGycm Automated exposure control for dose reduction was used. FINDINGS: There is cerebral cortical atrophy. There is no mass effect nor midline shift. There is no sign of in tracranial hemorrhage. There is mild mucosal thickening in the ethmoid air cells. The calvarium is in tact. IMPRESSION: MODERATE ATROPHY. NO ACUTE INTRACRANIAL ABNORMALITY. NO FRACTURE SEEN. MINIMAL ETHMOID SINUSITIS.
[2017-10-28 05:56] LABS: Glucose,Whole Blood 178 mg/dL (75-99)
[2017-10-28 06:09] LABS: Basophils % (A) 0 %; Eosinophils % (A) 0 %; HCT 40.1 % (34.0-46.0); HGB 12.8 gm/dL (11.4-16.0); Lymphocytes # (A) 0.4 k/uL (1.0-4.8); Lymphocytes % (A) 4 %; MCH 29.4 pg (25.0-35.0); Mean Platelet Volume 8.2; Monocytes # (A) 0.2 k/uL (0-1.0); Monocytes % (A) 3 %; Neutrophils # (A) 8.7 k/uL (1.3-7.7); Neutrophils % (A) 92 %; Platelet Count 145 k/uL (150-450); RBC 4.36 m/uL (3.80-5.40); RDW 14.6 % (11.5-15.5); WBC 9.5 k/uL (3.8-10.6)
[2017-10-28 06:15] LABS: Anion Gap 9 mmol/L; Blood Urea Nitrogen 27 mg/dL (7-17); Calcium 8.8 mg/dL (8.4-10.2); Carbon Dioxide 31 mmol/L (22-30); Chloride 99 mmol/L (98-107); Glucose 178 mg/dL (74-99); Potassium 3.2 mmol/L (3.5-5.1); Sodium 139 mmol/L (137-145)
[2017-10-28] MEDS: methylPREDNISolone SOD SUCCI 125 MG/2 ML VIAL IV SCH ×3 (06:33→17:04)
[2017-10-28] MEDS: PANTOPRAZOLE 40 MG TABLET PO SCH (06:34)
[2017-10-28] MEDS: INSULIN ASPART 100 UNIT/ML 1 ML 10 ML VIAL SQ SCH ×4 (06:37→21:52)
[2017-10-28] MEDS: cefTRIAXone IN SWFI 1,000 MG/10 ML SYRINGE IVP SCH (07:38)
[2017-10-28] MEDS: ATENOLOL 25 MG TAB PO SCH ×2 (07:39→20:42)
[2017-10-28] MEDS: RIVAROXABAN 15 MG TAB PO SCH (07:39)
[2017-10-28] MEDS: AZITHROMYCIN 500 MG TAB PO SCH (07:39)
[2017-10-28] MEDS: LISINOPRIL 2.5 MG TAB PO SCH (07:39)
[2017-10-28] MEDS: FUROSEMIDE 10 MG/ML 4 ML VIAL IV SCH (07:39)
[2017-10-28] MEDS: ALBUTEROL NEBULIZED 2.5 MG/3 ML INHALATION PRN ×3 (09:05→19:57)
[2017-10-28] MEDS: SYMBICORT 160-4.5 MCG INHALER INHALATION SCH ×2 (09:05→19:56)
[2017-10-28 11:09] LABS: Glucose,Whole Blood 308 mg/dL (75-99)
--- NOTE | 2017-10-28 12:35 | PN ---
PROGRESS NOTE Mrs. Ruiz is an 86-year-old female with history of chronic persistent atrial fibrillation who presented with symptoms of cough with exacerbation of chronic obstructive pulmonary disease and CHF. She is feeling better today. Her breathing is better. She denies any chest pain. She continues to have cough, but that is better. Overall she is feeling much better. She continues to be at this time on atenolol 25 mg daily, Lasix 40 mg IV q.12 hours. Lisinopril 12.5 mg daily and Xarelto 15 mg daily. PHYSICAL EXAMINATION: Blood pressure 133/60 with a heart rate in the low 100. Lungs with few crackles. No wheezes. HEART: Irregular regular, S1, S2. No S3 with systolic murmur. No diastolic murmur. ABDOMEN: Soft, nontender. EXTREMITIES: No significant edema. Chronic discoloration left heel. LAB DATA: Potassium 3.2. BUN and creatinine 27 and 0.79, hemoglobin of 12.8. IMPRESSION: 1. Congestive heart failure with mildly impaired left ventricular systolic function. 2. Chronic persistent atrial fibrillation. 3. Bronchitis. RECOMMENDATION: I will switch her to oral diuretics and I will increase the dose of her Tenormin. Continue rest of medical regimen and depending on her progress further recommendation will be made. MMODL / IJN: [id number] /
[2017-10-28] MEDS ORDERED: POTASSIUM CHLORIDE ER 20 MEQ TAB.ER PO STA (12:39)
--- NOTE | 2017-10-28 12:55 | P.PN ---
Subjective Progress Note Date: 10/28/17 This is a very pleasant 86-year-old here patient who comes into the hospital because of increased chest congestion and cough and wheezing typically of an acute tracheobronchitis. Chest x-ray shows no evidence of any pneumonia. Yet she has severe thoracic kyphosis. She is known also to have history of chronic atrial fibrillation and she may have an underlying component of CHF knowing that the BNP level at the time of admission was quite elevated at 36,000. The patient was started on a combination of bronchodilators and steroids and antibiotics and the patient is also on IV Lasix. Her weight is down by around 1 kg since yesterday. She is feeling slightly better compared to yesterday. No pleurisy. No hemoptysis. No chest pain. No altered mental status. No history of smoking patient does not utilize any form of maintenance inhalers. She has a nebulizer at home should she uses on an as-needed basis. No significant swelling in lower extremities. No fall. No altered mentation. The white cell count is not elevated at 5.0. Rest of the blood work and electrodes have been within normal limits. Troponin I been 0.16, 0.11 and 0.08 respectively 3. The echocardiogram was completed and showed atrial fibrillation, moderate concentric left ventricular hypertrophy, mild-to- moderate LV dysfunction with an ejection fraction of 40-45%, normal RV size and function, severely dilated LA, mild MR, right sided pressures of 45 mmHg and moderate degree of pulmonary regurgitation. There is normal respiratory collapse of the right atrium. No pericardial effusion. On 10/28/2017, I'm seeing this patient for a follow-up. The patient is doing better compared to yesterday terms of her breathing. Overnight she got out of bed and she had a fall and a CAT scan of the brain was done and showed no acute abnormalities. The patient had no skeletal injuries. She has no chest pain. No significant shortness of breath on today's evaluation. No cough or sputum production. Overall bronchospasm wheezing is significant improved compared to yesterday. She states that she got weak and she felt dizzy and this was she fell. He is on anticoagulation with Xarelto. She may combination of Rocephin and Zithromax pH is also on IV Solu-Medrol. Objective - Vital Signs Vital signs: Vital Signs Temp 97 F L 10/28/17 11:28 Pulse 104 H 10/28/17 11:51 Resp 17 10/28/17 11:28 BP 133/68 10/28/17 11:28 Pulse Ox 99 10/28/17 11:28 Intake & Output 10/27/17 10/28/17 10/28/17 18:59 06:59 18:59 Intake Total 855 24 480 Balance 855 24 480 Weight 53.4 kg 53.3 kg Intake: IV 24 0.9 20 Furosemide 40 mg 4 Intake, IV Titration 250 Amount Azithromycin 500 mg In 250 Sodium Chloride 0.9% 250 ml @ 125 mls/hr IVPB DAILY [facility] Rx#:[id number] Oral 605 480 Other: Voiding Method Toilet # Voids 1 - Exam The patient appeared elderly female patient who looks quite cachectic at this point. Vital signs as documented. Head exam is unremarkable. No scleral icterus or corneal arcus noted. Neck is without jugular venous distension, thyromegaly, or carotid bruits. Carotid upstrokes are brisk bilaterally. Lungs are diminished breath sounds along with prolongation of the expiratory phase of breathing and there is evidence of thoracic kyphosis. Cardiac exam reveals the PMI to be normally sized and situated. Rhythm is irregular secondary to atrial fibrillation. First and second heart sounds normal. No murmurs, rubs or gallops. Abdominal exam reveals normal bowel sounds, no masses, no organomegaly and no aortic enlargement. Extremities are nonedematous and both femoral and pedal pulses are normal.Examination of the skin revealed no evidence of significant rashes, suspicious appearing nevi or other concerning lesions. Neurologic the patient is awake and alert and there is no focal neurological deficit at this point . psychiatrically the patient has normal affect and mood. - Labs CBC & Chem 7: 10/28/17 05:47 10/28/17 05:47 Labs: Abnormal Lab Results - Last 24 Hours (Table) 10/27/17 10/27/17 10/28/17 Range/Units 17:08 21:30 05:47 Plt Count 145 L (150-450) k/uL Neutrophils # 8.7 H (1.3-7.7) k/uL Lymphocytes # 0.4 L (1.0-4.8) k/uL Potassium (3.5-5.1) mmol/L Carbon Dioxide (22-30) mmol/L BUN (7-17) mg/dL Glucose (74-99) mg/dL POC Glucose (mg/dL) 225 H 224 H (75-99) mg/dL 10/28/17 10/28/17 10/28/17 Range/Units 05:47 05:54 10:57 Plt Count (150-450) k/uL Neutrophils # (1.3-7.7) k/uL Lymphocytes # (1.0-4.8) k/uL Potassium 3.2 L (3.5-5.1) mmol/L Carbon Dioxide 31 H (22-30) mmol/L BUN 27 H (7-17) mg/dL Glucose 178 H (74-99) mg/dL POC Glucose (mg/dL) 178 H 308 H (75-99) mg/dL Microbiology - Last 24 Hours (Table) 10/26/17 10:50 Blood Culture - Preliminary Blood No Growth after 24 hours Assessment and Plan Plan: Assessment 1 acute COPD exacerbation/acute tracheobronchitis, recovering and the patient is responding to combination of bronchodilators and steroids. She is also on broad-spectrum antibiotics for now. 2 CHF with mild impairment of the LV function with an ejection fraction of 40-45 % and moderate degree of pulmonary hypertension 3 worsening shortness of breath essentially secondary to COPD exacerbation and there may be a mild component of CHF in addition 4 troponin leak, awaiting cardiology evaluation 5 chronic atrial fibrillation rate controlled on anticoagulation with Xarelto 6 thoracic kyphosis 7 hypertension 8 hyperlipidemia 9 thrombocytopenia 10 osteoporosis 11 fall without any significant injuries. Plan Patient is improving. Continue same treatment. Switch this patient to a prednisone burst taper as of tomorrow. Increased level of activity as tolerated. We'll continue to follow.
[2017-10-28 17:02] LABS: Glucose,Whole Blood 167 mg/dL (75-99)
[2017-10-28] MEDS: FUROSEMIDE 40 MG TAB PO SCH (17:08)
--- NOTE | 2017-10-28 20:29 | XR ---
EXAMINATION TYPE: XR chest 1V portable DATE OF EXAM: 10/28/2017 CLINICAL HISTORY: Difficulty breathing CHF progress study. TECHNIQUE: Single AP portable upright view of the chest is obtained. COMPARISON: Chest x-ray from October 26 2017 FINDINGS: There is cardiomegaly with atherosclerotic and ectatic aorta. There is chronic parenchymal change without suspicious focal airspace opacity, pleural effusion, or pneumothorax seen bilaterally . Osseous structures are demineralized. IMPRESSION: Overall stable findings, chronic parenchymal change and cardiomegaly without acute pulm onary process.
[2017-10-28 21:46] LABS: Glucose,Whole Blood 244 mg/dL (75-99)
[2017-10-28] MEDS: ALPRAZolam 0.25 MG TAB PO PRN (22:51)
[2017-10-28] MEDS: methylPREDNISolone SOD SUCCI 40 MG/ML 1 ML VIAL IV SCH (22:51)
[2017-10-29] MEDS: PANTOPRAZOLE 40 MG TABLET PO SCH (05:14)
[2017-10-29] MEDS: FUROSEMIDE 40 MG TAB PO SCH (05:14)
[2017-10-29 06:09] LABS: Glucose,Whole Blood 196 mg/dL (75-99)
[2017-10-29] MEDS: INSULIN ASPART 100 UNIT/ML 1 ML 10 ML VIAL SQ SCH ×4 (06:16→21:19)
[2017-10-29 07:11] LABS: Basophils % (A) 0 %; Eosinophils % (A) 0 %; HCT 38.7 % (34.0-46.0); HGB 12.4 gm/dL (11.4-16.0); Lymphocytes # (A) 0.3 k/uL (1.0-4.8); Lymphocytes % (A) 4 %; MCH 29.9 pg (25.0-35.0); MCHC 31.9 g/dL (31.0-37.0); MCV 93.7 fL (80.0-100.0); Mean Platelet Volume 8.1; Monocytes # (A) 0.3 k/uL (0-1.0); Monocytes % (A) 3 %; Neutrophils # (A) 7.3 k/uL (1.3-7.7); Neutrophils % (A) 92 %; Platelet Count 151 k/uL (150-450); RBC 4.13 m/uL (3.80-5.40); RDW 14.5 % (11.5-15.5); WBC 7.9 k/uL (3.8-10.6)
[2017-10-29 07:21] LABS: Anion Gap 14 mmol/L; Blood Urea Nitrogen 31 mg/dL (7-17); Calcium 9.1 mg/dL (8.4-10.2); Carbon Dioxide 27 mmol/L (22-30); Chloride 98 mmol/L (98-107); Glucose 197 mg/dL (74-99); Potassium 4.2 mmol/L (3.5-5.1); Sodium 139 mmol/L (137-145)
[2017-10-29] MEDS: ATENOLOL 25 MG TAB PO SCH ×2 (07:48→20:05)
[2017-10-29] MEDS: AZITHROMYCIN 500 MG TAB PO SCH (07:48)
[2017-10-29] MEDS: methylPREDNISolone SOD SUCCI 40 MG/ML 1 ML VIAL IV SCH (07:48)
[2017-10-29] MEDS: cefTRIAXone IN SWFI 1,000 MG/10 ML SYRINGE IVP SCH (07:48)
[2017-10-29] MEDS: RIVAROXABAN 15 MG TAB PO SCH (07:48)
[2017-10-29] MEDS: LISINOPRIL 2.5 MG TAB PO SCH (07:48)
--- NOTE | 2017-10-29 08:00 | PN ---
PROGRESS NOTE DATE OF SERVICE: 10/28/2017 This 86-year-old woman who was admitted with shortness of breath and COPD acute exacerbation as well as some CHF is being closely monitored at this time. A CT scan of the brain was done yesterday which showed moderate atrophy. No acute abnormality. EXAM: Alert and oriented x3. Pulse is 89, blood pressure 120/75, respiration 16, temperature 97.2, pulse ox 98% on room air. HEENT: Conjunctivae normal. NECK: No jugular venous distention. CARDIOVASCULAR: S1, S2. RESPIRATORY: Breath sounds diminished in the bases. Scattered rhonchi and crackles. Expiratory wheezing also present. Kyphoscoliosis present. ABDOMEN: Soft, nontender. LEGS: No edema. NERVOUS SYSTEM: No focal deficits. LABS: CBC within normal. Sodium 139, potassium 3.2. ASSESSMENT: 1. Shortness of breath multifactorial related to chronic obstructive pulmonary disease acute exacerbation with acute purulent tracheobronchitis. 2. Acute congestive heart failure in a patient with recent upper respiratory infection. 3. Congestive heart failure with acute on chronic systolic dysfunction, ejection fraction 40-45%. 4. Pulmonary hypertension. 5. Elevated LFTs, possibly mild hepatitis. 6. Troponin 0.161. Possible acute non ST-segment elevation myocardial infarction. 7. History of nicotine dependence. 8. Chronic persistent atrial fibrillation. 9. Gastroesophageal reflux disease. 10.Hypertension. 11.Hyperlipidemia. RECOMMENDATIONS AND DISCUSSION: This 86-year-old woman who presented with multiple complex medical issues, we will monitor the patient closely. Continue the current management and symptomatic treatment. At this time I recommend continue with current medications. Continue to monitor blood sugars closely. I would recommend to reduce the dose of steroids and repeat x-ray. Further recommendations to follow. MMODL / IJN: [id number] /
[2017-10-29] MEDS: ALBUTEROL NEBULIZED 2.5 MG/3 ML INHALATION PRN ×4 (08:04→21:13)
[2017-10-29] MEDS: SYMBICORT 160-4.5 MCG INHALER INHALATION SCH ×2 (08:04→21:13)
[2017-10-29 11:31] LABS: Glucose,Whole Blood 331 mg/dL (75-99)
--- NOTE | 2017-10-29 13:14 | PN ---
PROGRESS NOTE Mrs. Ruiz is an 86-year-old female who presented with bronchitis and element of CHF. She is feeling better. Continues to be fatigued. She has some cough. No chest pain. No peripheral edema. No dizziness. She has history of chronic persistent atrial fibrillation. She continues to be at this time on atenolol 25 mg twice a day, furosemide 40 mg orally twice a day, Lisinopril 2.5 mg daily, Xarelto 15 mg daily in addition to prednisone. PHYSICAL EXAMINATION: Blood pressure 150/80 with a heart rate in the 90s. LUNGS: With decreased air exchange and scattered rhonchi. HEART: Irregular regular S1, S2. No S3. No rub. ABDOMEN: Soft, nontender. EXTREMITIES: No significant edema. LAB DATA: BUN and creatinine of 31 and 0.8, potassium 4.2, hemoglobin of 12.4. IMPRESSION: 1. Symptoms of congestive heart failure, improving. 2. Chronic persistent atrial fibrillation. 3. Bronchitis with exacerbation of chronic obstructive pulmonary disease. RECOMMENDATION: I will cut down the dose of her Lasix. Continue rest of medical regimen. Follow her heart rate and depending on her progress further recommendation will be made. MMODL / IJN: [id number] /
--- NOTE | 2017-10-29 13:20 | P.PN ---
Subjective Progress Note Date: 10/29/17 This is a very pleasant 86-year-old here patient who comes into the hospital because of increased chest congestion and cough and wheezing typically of an acute tracheobronchitis. Chest x-ray shows no evidence of any pneumonia. Yet she has severe thoracic kyphosis. She is known also to have history of chronic atrial fibrillation and she may have an underlying component of CHF knowing that the BNP level at the time of admission was quite elevated at 36,000. The patient was started on a combination of bronchodilators and steroids and antibiotics and the patient is also on IV Lasix. Her weight is down by around 1 kg since yesterday. She is feeling slightly better compared to yesterday. No pleurisy. No hemoptysis. No chest pain. No altered mental status. No history of smoking patient does not utilize any form of maintenance inhalers. She has a nebulizer at home should she uses on an as-needed basis. No significant swelling in lower extremities. No fall. No altered mentation. The white cell count is not elevated at 5.0. Rest of the blood work and electrodes have been within normal limits. Troponin I been 0.16, 0.11 and 0.08 respectively 3. The echocardiogram was completed and showed atrial fibrillation, moderate concentric left ventricular hypertrophy, mild-to- moderate LV dysfunction with an ejection fraction of 40-45%, normal RV size and function, severely dilated LA, mild MR, right sided pressures of 45 mmHg and moderate degree of pulmonary regurgitation. There is normal respiratory collapse of the right atrium. No pericardial effusion. On 10/28/2017, I'm seeing this patient for a follow-up. The patient is doing better compared to yesterday terms of her breathing. Overnight she got out of bed and she had a fall and a CAT scan of the brain was done and showed no acute abnormalities. The patient had no skeletal injuries. She has no chest pain. No significant shortness of breath on today's evaluation. No cough or sputum production. Overall bronchospasm wheezing is significant improved compared to yesterday. She states that she got weak and she felt dizzy and this was she fell. He is on anticoagulation with Xarelto. She may combination of Rocephin and Zithromax pH is also on IV Solu-Medrol. On 10/29/2017, the patient is being seen for a follow-up. Breathing is improved. Less short of breath. Still weak. She did some limited amount of activity along with an help of a nursing staff yesterday. No falls. No angina. No change in mental status. The patient will be taken off the IV Solu- Medrol and put on a prednisone burst taper. She is still on oral Zithromax. She is taken IV Rocephin 1 g every 24 hours. She is on Xarelto for long-term anticoagulation and Tenormin for rate control regarding her atrial fibrillation. Objective - Vital Signs Vital signs: Vital Signs Temp 97.2 F L 10/29/17 11:24 Pulse 92 10/29/17 12:09 Resp 17 10/29/17 11:24 BP 154/81 10/29/17 11:24 Pulse Ox 99 10/29/17 11:24 Intake & Output 10/28/17 10/29/17 10/29/17 18:59 06:59 18:59 Intake Total 798 20 236 Output Total 100 Balance 698 20 236 Weight 53.7 kg Intake: IV 20 0.9 20 Oral 798 236 Output: Urine 100 Other: Voiding Method Toilet # Voids 1 1 # Bowel Movements 0 - Exam The patient appeared elderly female patient who looks quite cachectic at this point. Vital signs as documented. Head exam is unremarkable. No scleral icterus or corneal arcus noted. Neck is without jugular venous distension, thyromegaly, or carotid bruits. Carotid upstrokes are brisk bilaterally. Lungs are diminished breath sounds along with prolongation of the expiratory phase of breathing and there is evidence of thoracic kyphosis. Cardiac exam reveals the PMI to be normally sized and situated. Rhythm is irregular secondary to atrial fibrillation. First and second heart sounds normal. No murmurs, rubs or gallops. Abdominal exam reveals normal bowel sounds, no masses, no organomegaly and no aortic enlargement. Extremities are nonedematous and both femoral and pedal pulses are normal.Examination of the skin revealed no evidence of significant rashes, suspicious appearing nevi or other concerning lesions. Neurologic the patient is awake and alert and there is no focal neurological deficit at this point . psychiatrically the patient has normal affect and mood. - Labs CBC & Chem 7: 10/29/17 06:19 10/29/17 06:19 Labs: Abnormal Lab Results - Last 24 Hours (Table) 10/28/17 10/28/17 10/29/17 Range/Units 16:38 21:16 06:05 Lymphocytes # (1.0-4.8) k/uL BUN (7-17) mg/dL Glucose (74-99) mg/dL POC Glucose (mg/dL) 167 H 244 H 196 H (75-99) mg/dL 10/29/17 10/29/17 10/29/17 Range/Units 06:19 06:19 11:20 Lymphocytes # 0.3 L (1.0-4.8) k/uL BUN 31 H (7-17) mg/dL Glucose 197 H (74-99) mg/dL POC Glucose (mg/dL) 331 H (75-99) mg/dL Microbiology - Last 24 Hours (Table) 10/26/17 10:50 Blood Culture - Preliminary Blood No Growth after 72 hours Assessment and Plan Plan: Assessment 1 acute COPD exacerbation/acute tracheobronchitis, recovering and the patient is responding to combination of bronchodilators and steroids. She is also on broad-spectrum antibiotics for now. 2 CHF with mild impairment of the LV function with an ejection fraction of 40-45 % and moderate degree of pulmonary hypertension 3 worsening shortness of breath essentially secondary to COPD exacerbation and there may be a mild component of CHF in addition 4 troponin leak, awaiting cardiology evaluation 5 chronic atrial fibrillation rate controlled on anticoagulation with Xarelto 6 thoracic kyphosis 7 hypertension 8 hyperlipidemia 9 thrombocytopenia 10 osteoporosis 11 fall without any significant injuries. Plan This continued IV Solu-Medrol and start the patient a prednisone burst taper. This continued IV Rocephin. Continue oral Zithromax. Management of atrial fibrillation and CHF per cardiology. Increased level of activity as tolerated. Fall precautions. We'll continue to follow.
[2017-10-29 16:56] LABS: Glucose,Whole Blood 208 mg/dL (75-99)
[2017-10-29 21:03] LABS: Glucose,Whole Blood 176 mg/dL (75-99)
[2017-10-29 21:49] VITALS: RESP 18
[2017-10-29] MEDS: ALPRAZolam 0.25 MG TAB PO PRN (23:01)
[2017-10-30] MEDS: INSULIN ASPART 100 UNIT/ML 1 ML 10 ML VIAL SQ SCH ×2 (06:20→12:16)
[2017-10-30] MEDS: PANTOPRAZOLE 40 MG TABLET PO SCH (06:20)
[2017-10-30 06:23] LABS: Glucose,Whole Blood 114 mg/dL (75-99)
[2017-10-30 06:38] LABS: Basophils % (A) 0 %; Eosinophils % (A) 0 %; HGB 12.5 gm/dL (11.4-16.0); Lymphocytes # (A) 0.5 k/uL (1.0-4.8); Lymphocytes % (A) 5 %; MCH 29.6 pg (25.0-35.0); MCV 92.5 fL (80.0-100.0); Mean Platelet Volume 8.2; Monocytes # (A) 0.6 k/uL (0-1.0); Monocytes % (A) 6 %; Neutrophils # (A) 8.3 k/uL (1.3-7.7); Neutrophils % (A) 87 %; Platelet Count 166 k/uL (150-450); RBC 4.21 m/uL (3.80-5.40); RDW 14.6 % (11.5-15.5); WBC 9.5 k/uL (3.8-10.6)
[2017-10-30 06:59] LABS: Anion Gap 8 mmol/L; Blood Urea Nitrogen 36 mg/dL (7-17); Carbon Dioxide 32 mmol/L (22-30); Chloride 98 mmol/L (98-107); Glucose 123 mg/dL (74-99); Sodium 138 mmol/L (137-145)
[2017-10-30] MEDS: LISINOPRIL 2.5 MG TAB PO SCH (08:04)
[2017-10-30] MEDS: RIVAROXABAN 15 MG TAB PO SCH (08:04)
[2017-10-30] MEDS: AZITHROMYCIN 500 MG TAB PO SCH (08:04)
[2017-10-30] MEDS: ATENOLOL 25 MG TAB PO SCH (08:04)
[2017-10-30] MEDS: SYMBICORT 160-4.5 MCG INHALER INHALATION SCH (08:46)
[2017-10-30] MEDS: ALBUTEROL NEBULIZED 2.5 MG/3 ML INHALATION PRN ×3 (08:46→16:00)
[2017-10-30] MEDS ORDERED: FUROSEMIDE 40 MG TAB PO SCH (09:00)
[2017-10-30] MEDS ORDERED: predniSONE 20 MG TAB PO SCH (09:00)
--- NOTE | 2017-10-30 10:04 | PN ---
PROGRESS NOTE DATE OF SERVICE: 10/29/2017 This 86 -year-old woman was admitted to the hospital with shortness of breath, which is multifactorial, is being closely monitored. No chest pain. No palpitations. No fever. Still has shortness of breath with cough. EXAM: Alert and oriented times three. Pulse is 90. Blood pressure 120/77, respiration 16, temperature 97.3. Pulse ox 100% on room air. HEENT: Conjunctivae normal. Neck: No jugular venous distention. Cardiovascular: S1, S2 muffled. Respiratory: Breath sounds diminished in the bases. A few scattered rhonchi and crackles. Abdomen is soft, nontender. Legs: No edema. No swelling. Central nervous system: No focal deficits. LABS: Accu-Cheks 231 and 208. ASSESSMENT: 1. Shortness of breath, multifactorial related to chronic obstructive pulmonary disease acute exacerbation as well as acute purulent tracheobronchitis. 2. Congestive heart failure acute exacerbation with acute on chronic systolic dysfunction ejection fraction 40-45%. 3. Upper respiratory infection. 4. Pulmonary hypertension. 5. Elevated LFTs, possibly mild hepatitis. 6. Troponin 0.167. Possible acute non ST elevation myocardial infarction. 7. History of nicotine dependence. 8. Chronic persistent atrial fibrillation. 9. Gastroesophageal reflux disease. 10.Hypertension. 11.Hyperlipidemia. RECOMMENDATIONS AND DISCUSSION: Recommend to continue current medications, management and symptomatic treatment. Otherwise at this time we will taper the steroids. Continue the rest of the medications. Bronchodilators. Closely follow with Cardiology. p.o. diuretics. Guarded prognosis. Further recommendations to follow. MMODL / IJN: [id number] /
[2017-10-30 12:05] LABS: Glucose,Whole Blood 194 mg/dL (75-99)
--- NOTE | 2017-10-30 13:13 | P.PN ---
Subjective Progress Note Date: 10/30/17 Principal diagnosis: acute exacerbation of COPD and purulent tracheobronchitis. This is a very pleasant 86-year-old here patient who comes into the hospital because of increased chest congestion and cough and wheezing typically of an acute tracheobronchitis. Chest x-ray shows no evidence of any pneumonia. Yet she has severe thoracic kyphosis. She is known also to have history of chronic atrial fibrillation and she may have an underlying component of CHF knowing that the BNP level at the time of admission was quite elevated at 36,000. The patient was started on a combination of bronchodilators and steroids and antibiotics and the patient is also on IV Lasix. Her weight is down by around 1 kg since yesterday. She is feeling slightly better compared to yesterday. No pleurisy. No hemoptysis. No chest pain. No altered mental status. No history of smoking patient does not utilize any form of maintenance inhalers. She has a nebulizer at home should she uses on an as-needed basis. No significant swelling in lower extremities. No fall. No altered mentation. The white cell count is not elevated at 5.0. Rest of the blood work and electrodes have been within normal limits. Troponin I been 0.16, 0.11 and 0.08 respectively 3. The echocardiogram was completed and showed atrial fibrillation, moderate concentric left ventricular hypertrophy, mild-to- moderate LV dysfunction with an ejection fraction of 40-45%, normal RV size and function, severely dilated LA, mild MR, right sided pressures of 45 mmHg and moderate degree of pulmonary regurgitation. There is normal respiratory collapse of the right atrium. No pericardial effusion. On 10/28/2017, I'm seeing this patient for a follow-up. The patient is doing better compared to yesterday terms of her breathing. Overnight she got out of bed and she had a fall and a CAT scan of the brain was done and showed no acute abnormalities. The patient had no skeletal injuries. She has no chest pain. No significant shortness of breath on today's evaluation. No cough or sputum production. Overall bronchospasm wheezing is significant improved compared to yesterday. She states that she got weak and she felt dizzy and this was she fell. He is on anticoagulation with Xarelto. She may combination of Rocephin and Zithromax pH is also on IV Solu-Medrol. On 10/29/2017, the patient is being seen for a follow-up. Breathing is improved. Less short of breath. Still weak. She did some limited amount of activity along with an help of a nursing staff yesterday. No falls. No angina. No change in mental status. The patient will be taken off the IV Solu- Medrol and put on a prednisone burst taper. She is still on oral Zithromax. She is taken IV Rocephin 1 g every 24 hours. She is on Xarelto for long-term anticoagulation and Tenormin for rate control regarding her atrial fibrillation. On 10/30/2017, patient is feeling much better, and she is asking to be discharged home. Hardly any cough, she has occasional wheezing, no fever no chills no hemoptysis no chest pain.labs from today were relatively unremarkable.last chest x-ray showed chronic parenchymal changes and cardiomegaly without acute pulmonary process. And this was a few days ago. Objective - Vital Signs Vital signs: Vital Signs Temp 97 F L 10/30/17 11:00 Pulse 86 10/30/17 12:34 Resp 18 10/30/17 11:00 BP 149/78 10/30/17 11:00 Pulse Ox 96 10/30/17 11:00 Intake & Output 10/29/17 10/30/17 10/30/17 18:59 06:59 18:59 Intake Total 956 28 Output Total 300 Balance 656 28 Weight 53.5 kg Intake: IV 28 0.9 20 Furosemide 40 mg 8 Oral 956 Output: Urine 300 Other: Voiding Method Toilet Toilet # Voids 2 1 # Bowel Movements 0 0 - Exam Physical Exam: Revealed an 86-year-old female in no distress, overweight. HEENT:[Neck is supple.] [No neck masses.] [No thyromegaly.] [No JVD.] Chest: [Clear throughout, no crackles, no rhonchi, no wheezes.] Cardiac Exam: [Normal S1 and S2, no S3 gallop, no murmur.] Abdomen: [Soft, nontender, no megaly, no rebound, no guarding, normal bowel sounds.] Extremities: [No clubbing, no edema, no cyanosis.] Neurological Exam: [No focal neurologic deficit.] lymphatics: No lymphadenopathy Psychiatric: Normal mood affect and mental status examination. - Labs CBC & Chem 7: 10/30/17 06:17 10/30/17 06:17 Labs: Abnormal Lab Results - Last 24 Hours (Table) 10/29/17 10/29/17 10/30/17 Range/Units 16:53 21:01 06:17 Neutrophils # 8.3 H (1.3-7.7) k/uL Lymphocytes # 0.5 L (1.0-4.8) k/uL Carbon Dioxide (22-30) mmol/L BUN (7-17) mg/dL Glucose (74-99) mg/dL POC Glucose (mg/dL) 208 H 176 H (75-99) mg/dL 10/30/17 10/30/17 10/30/17 Range/Units 06:17 06:20 11:58 Neutrophils # (1.3-7.7) k/uL Lymphocytes # (1.0-4.8) k/uL Carbon Dioxide 32 H (22-30) mmol/L BUN 36 H (7-17) mg/dL Glucose 123 H (74-99) mg/dL POC Glucose (mg/dL) 114 H 194 H (75-99) mg/dL Microbiology - Last 24 Hours (Table) 10/26/17 10:50 Blood Culture - Preliminary Blood No Growth after 72 hours Assessment and Plan Assessment: 1 acute COPD exacerbation/acute tracheobronchitis, recovering and the patient is responding to combination of bronchodilators and steroids. She is also on broad-spectrum antibiotics for now. 2 mild impairment of the LV function with an ejection fraction of 40-45% and moderate degree of pulmonary hypertension. No clear-cut evidence of congestive heart failure on the chest x-ray. 3 worsening shortness of breath essentially secondary to COPD exacerbation , much better today on 10/30/2017. 4 troponin leak, awaiting cardiology evaluation 5 chronic atrial fibrillation rate controlled on anticoagulation with Xarelto 6 thoracic kyphosis 7 hypertension 8 hyperlipidemia 9 thrombocytopenia 10 osteoporosis 11 fall without any significant injuries. Recommendation: Switch to oral prednisone, continue oral antibiotics in the form of Zithromax, discontinue Rocephin, consider discharge planning today if cleared by cardiology. Time with Patient: Less than 30
--- NOTE | 2017-10-30 13:41 | P.PN ---
Subjective Progress Note Date: 10/30/17 Principal diagnosis: Tracheobronchitis and congestive heart failure This is a pleasant 86-year-old female admitted to the hospital with tracheobronchitis and element of congestive cardiac failure. She has known chronic persistent atrial fibrillation, heart rate today in the 80s. Currently on by mouth Lasix. Potassium 4.0, BUN 36, creatinine 0.8. Objective - Vital Signs Vital signs: Vital Signs Temp 97 F L 10/30/17 11:00 Pulse 86 10/30/17 12:34 Resp 18 10/30/17 11:00 BP 149/78 10/30/17 11:00 Pulse Ox 96 10/30/17 11:00 Intake & Output 10/29/17 10/30/17 10/30/17 18:59 06:59 18:59 Intake Total 956 28 Output Total 300 Balance 656 28 Weight 53.5 kg Intake: IV 28 0.9 20 Furosemide 40 mg 8 Oral 956 Output: Urine 300 Other: Voiding Method Toilet Toilet # Voids 2 1 # Bowel Movements 0 0 - Exam PHYSICAL EXAMINATION: HEENT: [Head is atraumatic, normocephalic. Pupils equal, round. Neck is supple. There is no elevated jugular venous pressure.] HEART EXAMINATION: Heart S1 and S2 irregularly irregular CHEST EXAMINATION: Lungs reveal decreased air exchange with fine wheezing throughout. ABDOMEN: [ Soft, nontender. Bowel sounds are heard. No organomegaly noted]. EXTREMITIES:[ 2+ peripheral pulses with no evidence of peripheral edema and no calf tenderness noted]. NEUROLOGIC [patient is awake, alert and oriented -3.] . - Labs CBC & Chem 7: 10/30/17 06:17 10/30/17 06:17 Labs: Abnormal Lab Results - Last 24 Hours (Table) 10/29/17 10/29/17 10/30/17 Range/Units 16:53 21:01 06:17 Neutrophils # 8.3 H (1.3-7.7) k/uL Lymphocytes # 0.5 L (1.0-4.8) k/uL Carbon Dioxide (22-30) mmol/L BUN (7-17) mg/dL Glucose (74-99) mg/dL POC Glucose (mg/dL) 208 H 176 H (75-99) mg/dL 10/30/17 10/30/17 10/30/17 Range/Units 06:17 06:20 11:58 Neutrophils # (1.3-7.7) k/uL Lymphocytes # (1.0-4.8) k/uL Carbon Dioxide 32 H (22-30) mmol/L BUN 36 H (7-17) mg/dL Glucose 123 H (74-99) mg/dL POC Glucose (mg/dL) 114 H 194 H (75-99) mg/dL Microbiology - Last 24 Hours (Table) 10/26/17 10:50 Blood Culture - Preliminary Blood No Growth after 96 hours Assessment and Plan Plan: Assessment and plan #1 congestive cardiac failure, systolic, acute on chronic. Echocardiogram with Doppler study revealed an ejection fraction of 40-45% #2 COPD exacerbation with acute purulent tracheobronchitis #3 abnormal troponin, likely secondary to oxygen supply and demand mismatch. Patient denies any chest discomfort. EKG shows atrial fibrillation with a controlled ventricular response #4 chronic persistent atrial fibrillation, on Xarelto for anticoagulation #5 nicotine dependence #6 COPD #7 hypertension #8 hyperlipidemia #9 history of dementia #10 abnormal liver enzymes, likely secondary to congestion from congestive cardiac failure Plan From cardiology's perspective, we will follow this patient with you now on an as -needed basis only, please don't hesitate to call with any questions. A follow- up appointment will be made in the office with Dr. Jansen post discharge. DNP note has been reviewed, I agree with a documented findings and plan of care. Patient was seen and examined.
[2017-10-30 16:30] VITALS: BP 147/78; PULSE 112; TEMP 97.4
--- NOTE | 2017-10-31 11:41 | DS ---
DISCHARGE SUMMARY FINAL DIAGNOSES: 1. Shortness of breath multifactorial, chronic obstructive pulmonary disease acute exacerbation as well as acute purulent tracheobronchitis. 2. Congestive heart failure acute exacerbation with acute on chronic systolic dysfunction, ejection fraction 40-45%. 3. Upper respiratory infection. 4. Pulmonary hypertension. 5. Elevated LFTs, possibly mild hepatitis. 6. Troponin 0.167. Possible acute non ST-segment elevation myocardial infarction on medical treatment. 7. History of nicotine dependence. 8. Chronic persistent atrial fibrillation. 9. Gastroesophageal reflux disease. 10.Hypertension. 11.Hyperlipidemia. DISCHARGE DISPOSITION: The patient is being discharged in stable condition with guarded prognosis. HISTORY OF PRESENT ILLNESS: This is an 86-year-old woman with a past medical history of multiple medical problems admitted with shortness of breath and multiple other medical issues as listed. The patient treated with bronchodilators, antibiotics and other medical treatment. Patient seen by multiple consultants, cardiology, pulmonology. The improved significantly. PHYSICAL EXAMINATION: On exam, vital signs stable. Cardiovascular: S1, S2 muffled. Abdomen soft. Nervous system: No focal deficits. DISCHARGE ADVICE AND MEDICATIONS: 1. Cardiac diet. 2. Activity limited until followup. 3. Follow up with Dr. Simons in 2-3 days. 4. Follow up with Dr. Jansen as advised. 5. Follow up with Dr. Wiseman as advised. MEDICATIONS: Will be as follows: 1. Tenormin 25 mg p.o. b.i.d. 2. Zithromax 500 mg p.o. daily for 5 days. 3. Symbicort 160/4.5 two puffs b.i.d. 4. Lasix 40 mg p.o. daily. 5. Zestril 2.5 mg. 6. Omeprazole 20 mg daily. 7. Prednisone taper that will be 40 mg daily for 3 days, 30 for 3 days, 20 for 3 days, 10 for 3 days and discontinue. 8. Xarelto 15 mg p.o. daily. 9. Tenormin has been discontinued. MMODL / IJN: [id number] /
== END 2017-10-30 16:51 | disposition home or self-care (01) | DRG 292 ==
LOC: EC 10:29 → 6SEL 14:02
PROVIDERS: ADMIT Hospitalist; ATTEND Hospitalist
DX: I11.0 Hypertensive heart disease with heart failure (principal); J44.1 Chronic obstructive pulmonary disease with (acute) exacerbation; I27.20 Pulmonary hypertension, unspecified; I48.1 Persistent atrial fibrillation; D69.6 Thrombocytopenia, unspecified; I48.2 Chronic atrial fibrillation; E78.5 Hyperlipidemia, unspecified; G43.909 Migraine, unspecified, not intractable, without status migrainosus; I50.23 Acute on chronic systolic (congestive) heart failure; F03.90 Unspecified dementia, unspecified severity, without behavioral disturbance, psychotic disturbance, mood disturbance, and anxiety; I73.9 Peripheral vascular disease, unspecified; F17.200 Nicotine dependence, unspecified, uncomplicated; K21.9 Gastro-esophageal reflux disease without esophagitis; M19.90 Unspecified osteoarthritis, unspecified site; I49.9 Cardiac arrhythmia, unspecified; M81.0 Age-related osteoporosis without current pathological fracture; I37.1 Nonrheumatic pulmonary valve insufficiency; M40.204 Unspecified kyphosis, thoracic region; Z87.01 Personal history of pneumonia (recurrent); Z85.3 Personal history of malignant neoplasm of breast; Z90.710 Acquired absence of both cervix and uterus; Z86.59 Personal history of other mental and behavioral disorders; Z79.01 Long term (current) use of anticoagulants; Z79.899 Other long term (current) drug therapy; Z90.11 Acquired absence of right breast and nipple; Z98.41 Cataract extraction status, right eye; Z98.42 Cataract extraction status, left eye; W06.XXXA Fall from bed, initial encounter; Y92.230 Patient room in hospital as the place of occurrence of the external cause
CPT/HCPCS: 36415; 70450; 71045; 71046; 80048; 80053; 81001; 82550; 82553; 83036; 83605; 83735; 83880; 84484; 85025; 85610; 85730; 87040; 87502; 93306; 94640; 94760; 96374; 99285

== ENCOUNTER 2018-11-24 11:41 | Emergency (ER) | payer MEDICARE, OTHER ==
[2018-11-24] MEDS ORDERED: SODIUM CHLORIDE 0.9% 1,000 ML IV STA (11:47)
[2018-11-24] MEDS ORDERED: SODIUM CHLORIDE 0.9% 500 ML 500 ML IV STA (11:47)
[2018-11-24] MEDS ORDERED: ACETAMINOPHEN TAB 325 MG TAB PO STA (11:47)
[2018-11-24 11:50] VITALS: RESP 18
--- NOTE | 2018-11-24 12:25 | ED ---
Fall HPI - General Chief Complaint: Fall Stated Complaint: LEFT SHOULDER, CLAVICAL INJURY Time Seen by Provider: 11/24/18 11:41 Source: patient, EMS, RN notes reviewed Mode of arrival: EMS - History of Present Illness Initial Comments: This is a 87-year-old female who has a history of chronic A. fib CHF was on [place] who was in the bathroom at home today when she bent over and apparently lost her balance and fell over. She complains of left clavicle pain no head neck or back pain no other injuries reported. Per paramedics he believe her left clavicle may be fractured. She also states she feels thirsty. Patient also is on blood pressure medication and her pressure was noted be elevated per paramedics. Believe she took her medications today at. MD Complaint: fall - Related Data Home Medications Medication Instructions Recorded Confirmed Rivaroxaban [Xarelto] 15 mg PO DAILY 02/26/14 11/24/18 Atenolol [Tenormin] 25 mg PO DAILY 11/24/18 11/24/18 Furosemide [Lasix] 40 mg PO BID 11/24/18 11/24/18 Previous Rx's Medication Instructions Recorded Lisinopril [Zestril] 2.5 mg PO DAILY #30 tab 03/03/14 Allergies Allergy/AdvReac Type Severity Reaction Status Date / Time No Known Allergies Allergy Verified 11/24/18 12:04 Review of Systems ROS Statement: Those systems with pertinent positive or pertinent negative responses have been documented in the HPI. ROS Other: All systems not noted in ROS Statement are negative. Past Medical History Past Medical History: Atrial Fibrillation, Cancer, Heart Failure, COPD, GERD/ Reflux, Hyperlipidemia, Hypertension, Memory Impairment, Osteoarthritis (OA), Pneumonia Additional Past Medical History / Comment(s): Chronic atrial fibrillation, breast cancer with a previous right mastectomy, peripheral vascular disease, migraines, trigeminal neuralgia, osteoporosis, osteoarthritis, hypertension, hyperlipidemia, acid reflux, CHF with mild impairment of the LV function with an ejection fraction of 40-45% and moderate degree of pulmonary hypertension History of Any Multi-Drug Resistant Organisms: None Reported Past Surgical History: Hysterectomy Additional Past Surgical History / Comment(s): Right mastectomy, bilateral cataracts, lt carpal tunnel, ganglion cyst removed Past Anesthesia/Blood Transfusion Reactions: No Reported Reaction Past Psychological History: Depression Smoking Status: Former smoker - Past Family History Father History Unknown: Yes Mother History Unknown: Yes General Exam - General Exam Comments Initial Comments: This a well-developed well-nourished awake alert oriented 3 female with a [place] Coma Scale of 15 Limitations: no limitations General appearance: alert, in no apparent distress Head exam: Present: atraumatic, normocephalic, normal inspection Eye exam: Present: normal appearance, PERRL, EOMI. Absent: scleral icterus, conjunctival injection, periorbital swelling ENT exam: Present: mucous membranes dry Neck exam: Present: normal inspection, full ROM, other (No stridor JVD or bruits ). Absent: tenderness, meningismus, lymphadenopathy Respiratory exam: Present: normal lung sounds bilaterally, chest wall tenderness (Is palpation over the mid left clavicle or is evidence of ecchymosis and small hematoma noted.). Absent: respiratory distress, wheezes, rales, rhonchi, stridor Cardiovascular Exam: Present: tachycardia, irregular rhythm. Absent: systolic murmur, diastolic murmur, rubs, gallop, clicks GI/Abdominal exam: Present: soft, normal bowel sounds. Absent: distended, tenderness, guarding, rebound, rigid Extremities exam: Present: full ROM, normal capillary refill, other (Some stasis dermatitis noted with some ecchymosis no bleeding noted. No step-off or crepitation no tenderness of the house). Absent: tenderness, pedal edema, joint swelling, calf tenderness Back exam: Present: normal inspection Neurological exam: Present: alert, oriented X3, CN II-XII intact Psychiatric exam: Present: normal affect, normal mood Skin exam: Present: warm, dry, intact, normal color. Absent: rash Course Vital Signs 11/24/18 11:42 Temperature 98.5 F Pulse Rate 105 H Respiratory 18 Rate Blood Pressure 175/100 O2 Sat by Pulse 97 Oximetry Medical Decision Making - Medical Decision Making I did discuss [employer] the patient and her niece who was present patient did receive IV fluids she is feeling recently well. She will be placed in a sling. She'll be discharged with orthopedic follow-up. - Lab Data Result diagrams: 11/24/18 11:55 11/24/18 11:55 Lab Results 11/24/18 11/24/18 11/24/18 Range/Units 11:55 11:55 11:55 WBC 5.7 (3.8-10.6) k/uL RBC 4.75 (3.80-5.40) m/uL Hgb 13.4 (11.4-16.0) gm/dL Hct 40.4 (34.0-46.0) % MCV 85.0 (80.0-100.0) fL MCH 28.1 (25.0-35.0) pg MCHC 33.1 (31.0-37.0) g/dL RDW 15.2 (11.5-15.5) % Plt Count 202 (150-450) k/uL Neutrophils % 81 % Lymphocytes % 11 % Monocytes % 5 % Eosinophils % 0 % Basophils % 0 % Neutrophils # 4.6 (1.3-7.7) k/uL Lymphocytes # 0.6 L (1.0-4.8) k/uL Monocytes # 0.3 (0-1.0) k/uL Eosinophils # 0.0 (0-0.7) k/uL Basophils # 0.0 (0-0.2) k/uL Sodium 138 (137-145) mmol/L Potassium 4.4 (3.5-5.1) mmol/L Chloride 104 (98-107) mmol/L Carbon Dioxide 23 (22-30) mmol/L Anion Gap 11 mmol/L BUN 21 H (7-17) mg/dL Creatinine 0.84 (0.52-1.04) mg/dL Est GFR (CKD-EPI)AfAm 72 (>60 ml/min/1.73 sqM) Est GFR (CKD-EPI)NonAf 62 (>60 ml/min/1.73 sqM) Glucose 123 H (74-99) mg/dL Calcium 8.8 (8.4-10.2) mg/dL Magnesium 2.1 (1.6-2.3) mg/dL Total Bilirubin 1.8 H (0.2-1.3) mg/dL AST 48 H (14-36) U/L ALT 25 (9-52) U/L Alkaline Phosphatase 81 (38-126) U/L Total Creatine Kinase 91 (30-135) U/L CK-MB (CK-2) 2.4 (0.0-2.4) ng/mL CK-MB (CK-2) Rel Index 2.6 Total Protein 7.0 (6.3-8.2) g/dL Albumin 4.2 (3.5-5.0) g/dL - Radiology Data Radiology results: report reviewed (I did review the imaging and reports are is evidence of a mid and distal third left clavicle fracture x-rays are otherwise unremarkable for acute processes.), image reviewed Disposition Clinical Impression: Fall, Clavicle fracture, Dehydration Disposition: HOME SELF-CARE Condition: Good Instructions (If sedation given, give patient instructions): Fall Prevention for Older Adults (ED), Dehydration (ED), Clavicle Fracture (ED) Additional Instructions: Sling left upper extremity 650 mg Tylenol for pain every 6 hours when necessary Is patient prescribed a controlled substance at d/c from ED?: No Referrals: Roe Simons III, MD [Primary Care Provider] - 1-2 days Griffin Thornton MD [Medical Doctor] - 1-2 days
[2018-11-24 12:48] LABS: Basophils % (A) 0 %; Eosinophils % (A) 0 %; HCT 40.4 % (34.0-46.0); HGB 13.4 gm/dL (11.4-16.0); Lymphocytes # (A) 0.6 k/uL (1.0-4.8); Lymphocytes % (A) 11 %; MCH 28.1 pg (25.0-35.0); MCHC 33.1 g/dL (31.0-37.0); Mean Platelet Volume 6.9; Monocytes # (A) 0.3 k/uL (0-1.0); Monocytes % (A) 5 %; Neutrophils # (A) 4.6 k/uL (1.3-7.7); Neutrophils % (A) 81 %; Platelet Count 202 k/uL (150-450); RBC 4.75 m/uL (3.80-5.40); RDW 15.2 % (11.5-15.5); WBC 5.7 k/uL (3.8-10.6)
[2018-11-24 12:59] LABS: Albumin 4.2 g/dL (3.5-5.0); Calcium 8.8 mg/dL (8.4-10.2); Magnesium 2.1 mg/dL (1.6-2.3); Total Bilirubin 1.8 mg/dL (0.2-1.3)
[2018-11-24 13:06] LABS: Potassium 4.4 mmol/L (3.5-5.1)
--- NOTE | 2018-11-24 13:17 | XR ---
EXAMINATION TYPE: XR chest 2V, XR clavicle LT DATE OF EXAM: 11/24/2018 COMPARISON: Chest x-rays October 28 and October 26, 2017. HISTORY: Pain and persistent cough. Pain after fall injury this morning. TECHNIQUE: Frontal and lateral views of the chest are obtained. 2 views left clavicle are acquired. FINDINGS: There is chronic parenchymal change with bilateral hilar prominence suggesting underlying p ulmonary artery hypertension redemonstrated. There is no focal air space opacity, pleural effusion, or pneumothorax seen. The cardiac silhouette size remains enlarged with atherosclerotic and ectatic thoracic aorta. Underlying scoliosis is redemonstrated. Demineralization is present. Exaggerated thor acic kyphosis with mild/moderate compression fractures midthoracic spine are redemonstrated. 2 views left clavicle show acute minimally displaced fracture through the middle one third of left cl avicle with slight impaction or 1.1 cm osseous overlap and slight inferior displacement of distal fra cture fragment versus proximal component. IMPRESSION: 1. Cardiomegaly and chronic parenchymal changes without acute pulmonary process. 2. Acute mildly displaced oblique fracture middle one third left clavicle.
[2018-11-24 13:21] LABS: Creatine Kinase MB 2.4 ng/mL (0.0-2.4)
[2018-11-24 14:50] VITALS: BP 158/90; PULSE 100; TEMP 98.2
== END 2018-11-24 14:49 | disposition home or self-care (01) ==
LOC: EC 11:41
DX: S42.032A Displaced fracture of lateral end of left clavicle, initial encounter for closed fracture (principal); E86.0 Dehydration; I11.0 Hypertensive heart disease with heart failure; I50.9 Heart failure, unspecified; I48.2 Chronic atrial fibrillation; Z79.01 Long term (current) use of anticoagulants; Z79.899 Other long term (current) drug therapy; Z85.3 Personal history of malignant neoplasm of breast; Z90.11 Acquired absence of right breast and nipple; Z87.891 Personal history of nicotine dependence; W18.09XA Striking against other object with subsequent fall, initial encounter; Y92.002 Bathroom of unspecified non-institutional (private) residence as the place of occurrence of the external cause
CPT/HCPCS: 36415; 71046; 80053; 82550; 82553; 83735; 85025; 96360; 99284

== ENCOUNTER 2019-11-13 18:52 | Emergency (ER) | payer MEDICARE, OTHER ==
[2019-11-13] MEDS ORDERED: FUROSEMIDE 10 MG/ML 4 ML VIAL IV STA (20:10)
--- NOTE | 2019-11-13 20:14 | ED ---
Skin/Abscess/FB HPI - General Chief complaint: Skin/Abscess/Foreign Body Stated complaint: leg redness/wound Time Seen by Provider: 11/13/19 19:45 Source: patient, family, RN notes reviewed Mode of arrival: wheelchair Limitations: no limitations - History of Present Illness Initial comments: This 88-year-old female history of congestive heart failure who presents with complaints of edema to her lower extremities and weeping from her right leg. She has had exertional dyspnea no fevers chills sweats no chest pain she does take Lasix at home no change in her medications recently. complaint: other - Related Data Home Medications Medication Instructions Recorded Confirmed Rivaroxaban [Xarelto] 15 mg PO DAILY 02/26/14 11/24/18 Atenolol [Tenormin] 25 mg PO DAILY 11/24/18 11/24/18 Furosemide [Lasix] 40 mg PO BID 11/24/18 11/24/18 Previous Rx's Medication Instructions Recorded Lisinopril [Zestril] 2.5 mg PO DAILY #30 tab 03/03/14 Allergies Allergy/AdvReac Type Severity Reaction Status Date / Time No Known Allergies Allergy Verified 11/13/19 19:08 Review of Systems ROS Statement: Those systems with pertinent positive or pertinent negative responses have been documented in the HPI. ROS Other: All systems not noted in ROS Statement are negative. Past Medical History Past Medical History: Atrial Fibrillation, Cancer, Heart Failure, COPD, GERD/Reflux, Hyperlipidemia, Hypertension, Memory Impairment, Osteoarthritis (OA), Pneumonia Additional Past Medical History / Comment(s): Chronic atrial fibrillation, breast cancer with a previous right mastectomy, peripheral vascular disease, migraines, trigeminal neuralgia, osteoporosis, osteoarthritis, hypertension, hyperlipidemia, acid reflux, CHF with mild impairment of the LV function with an ejection fraction of 40-45% and moderate degree of pulmonary hypertension History of Any Multi-Drug Resistant Organisms: None Reported Past Surgical History: Hysterectomy Additional Past Surgical History / Comment(s): Right mastectomy, bilateral cataracts, lt carpal tunnel, ganglion cyst removed Past Anesthesia/Blood Transfusion Reactions: No Reported Reaction Past Psychological History: Depression Smoking Status: Former smoker Past Alcohol Use History: None Reported Past Drug Use History: None Reported - Past Family History Father History Unknown: Yes Mother History Unknown: Yes General Exam - General Exam Comments Initial Comments: This a well-developed asthenic appearing female who is awake alert oriented 3 Limitations: no limitations General appearance: alert Head exam: Present: atraumatic, normocephalic, normal inspection Eye exam: Present: normal appearance, PERRL, EOMI. Absent: scleral icterus, conjunctival injection, periorbital swelling ENT exam: Present: normal exam, mucous membranes moist Neck exam: Present: normal inspection, full ROM, other. Absent: tenderness, meningismus, lymphadenopathy Respiratory exam: Present: rales, decreased breath sounds (No stridor JVD or bruits), other (She does demonstrate kyphosis). Absent: respiratory distress, wheezes, rhonchi, stridor Cardiovascular Exam: Present: normal rhythm, tachycardia. Absent: systolic murmur, diastolic murmur, rubs, gallop, clicks GI/Abdominal exam: Present: soft, normal bowel sounds. Absent: distended, tenderness, guarding, rebound, rigid Extremities exam: Present: full ROM, normal capillary refill, pedal edema, other (Edema with weeping noted from the right lower extremity no evidence of bleeding). Absent: tenderness, joint swelling, calf tenderness Back exam: Present: normal inspection Neurological exam: Present: alert, oriented X3, CN II-XII intact Psychiatric exam: Present: normal affect, normal mood Skin exam: Present: warm, dry, intact, normal color. Absent: rash Course Vital Signs 11/13/19 11/13/19 19:05 20:57 Temperature 98.0 F 97.7 F Pulse Rate 117 H 80 Respiratory 20 18 Rate Blood Pressure 149/75 157/93 O2 Sat by Pulse 96 94 L Oximetry Medical Decision Making - Medical Decision Making I did discuss findings with the patient she will be discharged she does want to go home. She'll be instructed to double up on her a.m. Lasix for next several days and follow-up with her doctor - Lab Data Result diagrams: 11/13/19 20:40 11/13/19 20:40 Lab Results 11/13/19 11/13/19 11/13/19 Range/Units 20:19 20:40 20:40 WBC 6.1 (3.8-10.6) k/uL RBC 4.12 (3.80-5.40) m/uL Hgb 12.1 (11.4-16.0) gm/dL Hct 37.5 (34.0-46.0) % MCV 91.0 (80.0-100.0) fL MCH 29.3 (25.0-35.0) pg MCHC 32.1 (31.0-37.0) g/dL RDW 14.0 (11.5-15.5) % Plt Count 165 (150-450) k/uL Neutrophils % 78 % Lymphocytes % 12 % Monocytes % 8 % Eosinophils % 0 % Basophils % 1 % Neutrophils # 4.7 (1.3-7.7) k/uL Lymphocytes # 0.7 L (1.0-4.8) k/uL Monocytes # 0.5 (0-1.0) k/uL Eosinophils # 0.0 (0-0.7) k/uL Basophils # 0.0 (0-0.2) k/uL PT 11.5 (9.0-12.0) sec INR 1.1 (<1.2) APTT 27.5 (22.0-30.0) sec Sodium 140 (137-145) mmol/L Potassium 3.8 (3.5-5.1) mmol/L Chloride 103 (98-107) mmol/L Carbon Dioxide 31 H (22-30) mmol/L Anion Gap 6 mmol/L BUN 20 H (7-17) mg/dL Creatinine 0.84 (0.52-1.04) mg/dL Est GFR (CKD-EPI)AfAm 71 (>60 ml/min/1.73 sqM) Est GFR (CKD-EPI)NonAf 62 (>60 ml/min/1.73 sqM) Glucose 106 H (74-99) mg/dL Calcium 8.8 (8.4-10.2) mg/dL Magnesium 2.1 (1.6-2.3) mg/dL Total Bilirubin 1.1 (0.2-1.3) mg/dL AST 31 (14-36) U/L ALT 14 (4-34) U/L Alkaline Phosphatase 67 (38-126) U/L Creatine Kinase 136 H (30-135) U/L Troponin I (0.000-0.034) ng/mL NT-Pro-B Natriuret Pep pg/mL Total Protein 6.3 (6.3-8.2) g/dL Albumin 3.9 (3.5-5.0) g/dL 11/13/19 11/13/19 Range/Units 20:40 20:40 WBC (3.8-10.6) k/uL RBC (3.80-5.40) m/uL Hgb (11.4-16.0) gm/dL Hct (34.0-46.0) % MCV (80.0-100.0) fL MCH (25.0-35.0) pg MCHC (31.0-37.0) g/dL RDW (11.5-15.5) % Plt Count (150-450) k/uL Neutrophils % % Lymphocytes % % Monocytes % % Eosinophils % % Basophils % % Neutrophils # (1.3-7.7) k/uL Lymphocytes # (1.0-4.8) k/uL Monocytes # (0-1.0) k/uL Eosinophils # (0-0.7) k/uL Basophils # (0-0.2) k/uL PT (9.0-12.0) sec INR (<1.2) APTT (22.0-30.0) sec Sodium (137-145) mmol/L Potassium (3.5-5.1) mmol/L Chloride (98-107) mmol/L Carbon Dioxide (22-30) mmol/L Anion Gap mmol/L BUN (7-17) mg/dL Creatinine (0.52-1.04) mg/dL Est GFR (CKD-EPI)AfAm (>60 ml/min/1.73 sqM) Est GFR (CKD-EPI)NonAf (>60 ml/min/1.73 sqM) Glucose (74-99) mg/dL Calcium (8.4-10.2) mg/dL Magnesium (1.6-2.3) mg/dL Total Bilirubin (0.2-1.3) mg/dL AST (14-36) U/L ALT (4-34) U/L Alkaline Phosphatase (38-126) U/L Creatine Kinase (30-135) U/L Troponin I <0.012 (0.000-0.034) ng/mL NT-Pro-B Natriuret Pep 5740 pg/mL Total Protein (6.3-8.2) g/dL Albumin (3.5-5.0) g/dL - EKG Data -: EKG Interpreted by Me (Atrial fibrillation rate of 83 QRS 88 QT since QTC 360/453 poor R-wave prog) - Radiology Data Radiology results: report reviewed (I did review the imaging and report no evidence of acute findings at this time.), image reviewed Disposition Clinical Impression: Congestive heart failure (CHF), Chronic atrial fibrillation Disposition: HOME SELF-CARE Condition: Good Instructions (If sedation given, give patient instructions): Heart Failure (ER) Additional Instructions: Double up on your morning Lasix dose for 3 days, follow-up with your doctor, return if needed Is patient prescribed a controlled substance at d/c from ED?: No Referrals: Roe Simons III, MD [Primary Care Provider] - 1-2 days
[2019-11-13 20:47] LABS: Basophils % (A) 1 %; Eosinophils % (A) 0 %; HCT 37.5 % (34.0-46.0); HGB 12.1 gm/dL (11.4-16.0); Lymphocytes # (A) 0.7 k/uL (1.0-4.8); Lymphocytes % (A) 12 %; MCH 29.3 pg (25.0-35.0); MCHC 32.1 g/dL (31.0-37.0); Mean Platelet Volume 7.5; Monocytes # (A) 0.5 k/uL (0-1.0); Monocytes % (A) 8 %; Neutrophils # (A) 4.7 k/uL (1.3-7.7); Neutrophils % (A) 78 %; Platelet Count 165 k/uL (150-450); RBC 4.12 m/uL (3.80-5.40); WBC 6.1 k/uL (3.8-10.6)
--- NOTE | 2019-11-13 20:47 | XR ---
EXAMINATION TYPE: XR chest 2V DATE OF EXAM: 11/13/2019 COMPARISON: November 24, 2018 HISTORY: Difficulty breathing TECHNIQUE: FINDINGS: Heart is enlarged. There is no heart failure. Costophrenic angles are clear. There is thora cic kyphotic deformity with anterior wedging of mid thoracic vertebra. Thoracic aorta is atheromatous . There is mild pulmonary hyperinflation. There are large central pulmonary arteries. There are chest leads. IMPRESSION: COPD. Cardiomegaly. There is probably pulmonary hypertension. No heart failure seen. No s ignificant change compared to old exam.
[2019-11-13 20:55] LABS: INR 1.1 (<1.2); Partial Thromboplastin Time 27.5 sec (22.0-30.0); Prothrombin Time 11.5 sec (9.0-12.0)
[2019-11-13 20:58] VITALS: RESP 18
[2019-11-13 21:01] LABS: Albumin 3.9 g/dL (3.5-5.0); Calcium 8.8 mg/dL (8.4-10.2); Magnesium 2.1 mg/dL (1.6-2.3); Potassium 3.8 mmol/L (3.5-5.1); Total Bilirubin 1.1 mg/dL (0.2-1.3); Total Protein 6.3 g/dL (6.3-8.2)
[2019-11-13 21:56] VITALS: BP 157/90; PULSE 90; TEMP 97.8
== END 2019-11-13 22:13 | disposition home or self-care (01) ==
LOC: EC 18:52
DX: I11.0 Hypertensive heart disease with heart failure (principal); I50.9 Heart failure, unspecified; I48.20 Chronic atrial fibrillation, unspecified; Z79.01 Long term (current) use of anticoagulants; Z79.899 Other long term (current) drug therapy; Z85.3 Personal history of malignant neoplasm of breast; Z90.11 Acquired absence of right breast and nipple; Z87.891 Personal history of nicotine dependence
CPT/HCPCS: 36415; 93005; 83880; 80053; 82550; 83735; 84484; 85025; 85610; 85730; 71046; 99284; 96374; J1940